=== PATIENT | female | born 1970 | race Caucasian/White ===

== ENCOUNTER 2016-12-02 11:25 | Inpatient (IN) | payer OTHER ==
--- NOTE | 2016-11-04 07:31 | History & Physical Bridge Note ---
H&P Re-Evaluation Bridge Note: I have examined the patient, reviewed the History & Physical and in the interval since the performance of the History & Physical I have noted the following changes of clinical significance: No changes noted
[2016-11-28 09:02] VITALS: BMI 24.0
--- NOTE | 2016-11-28 09:38 | PAT Medication Instructions ---
Service Date Nov 28, 2016. Current Home Medication List Acetaminophen (Tylenol), 1,500 MG PO UD PRN for Pain Amitriptyline HCl (Amitriptyline HCl), 10 MG PO HS Baclofen (Lioresal), 10 MG PO TID Buspirone Hcl (Buspar), 15 MG PO BID Citalopram (Citalopram Hydrobromide), 40 MG PO HS Clonazepam (Klonopin), 1 MG PO TID PRN for RN Dicyclomine Hcl (Dicyclomine Hcl), 10 MG PO TID PRN for ABDOMINAL CRAMPING Diphenhydramine Hcl (Benadryl), 50 MG PO Q8WK PRN for Prior to Remicade Gabapentin (Gabapentin), 300 MG PO TID Infliximab (Remicade), 1 DOSE IV Q8WK Mirtazapine Soltab (Remeron Soltab), 30 MG PO HS Multivit/Min/Iron/Fol Ac/Pren ( Vitamin), 1 TAB PO BID Naproxen (Naprosyn), 500 MG PO BID PRN for PRN Ondansetron Hcl (Zofran), 4 MG PO Q8 PRN for Nausea or Vomiting Pantoprazole (Pantoprazole Sodium), 40 MG PO BID Ranitidine Hcl (Zantac), 300 MG PO HS Tramadol (Ultram), 50-100 MG PO Q6H Trazodone Hcl (Trazodone), 100 MG PO HS Venlafaxine Hcl (Venlafaxine Extended Rel), 75 MG PO QAM [Voltareen 1%], 1 DOSE TOP QID 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 for 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 furnace Instructions For Your Scheduled Surgery Diphenhydramine Hcl (Benadryl), 50 MG PO Q8WK PRN for Prior to Remicade Infliximab (Remicade), 1 DOSE IV Q8WK (check with GI doctor if you can continue as scheduled) - Hold the following medications 24 hours prior to surgery: Voltaren 1% 1 DOSE TOP QID PRN for RN - Hold the following medications the morning of surgery: Multivit/Min/Iron/Fol Ac/Pren ( Vitamin), 1 TAB PO BID Naproxen (Naprosyn), 500 MG PO BID PRN for PRN (not told to stop by surgeon) Dicyclomine Hcl (Dicyclomine Hcl), 10 MG PO TID PRN for ABDOMINAL CRAMPING Baclofen (Lioresal), 10 MG PO TID - Take the following medications the morning of surgery with a sip of water: Venlafaxine Hcl (Venlafaxine Extended Rel), 75 MG PO QAM Tramadol (Ultram), 50-100 MG PO Q6H (can take up to four hours prior to surgery if needed) Pantoprazole (Pantoprazole Sodium), 40 MG PO BID Ondansetron Hcl (Zofran), 4 MG PO Q8 PRN for Nausea or Vomiting (only if needed) Gabapentin (Gabapentin), 300 MG PO TID (if needed) Clonazepam (Klonopin), 1 MG PO TID PRN for RN Buspirone Hcl (Buspar), 15 MG PO BID Acetaminophen (Tylenol), 1,500 MG PO UD PRN for Pain (if needed) - Take the following medications as scheduled the night before surgery: Trazodone Hcl (Trazodone), 100 MG PO HS Tramadol (Ultram), 50-100 MG PO Q6H Ranitidine Hcl (Zantac), 300 MG PO HS Pantoprazole (Pantoprazole Sodium), 40 MG PO BID Multivit/Min/Iron/Fol Ac/Pren ( Vitamin), 1 TAB PO BID Mirtazapine Soltab (Remeron Soltab), 30 MG PO HS Gabapentin (Gabapentin), 300 MG PO TID Dicyclomine Hcl (Dicyclomine Hcl), 10 MG PO TID PRN for ABDOMINAL CRAMPING Clonazepam (Klonopin), 1 MG PO TID PRN for RN Buspirone Hcl (Buspar), 15 MG PO BID Citalopram (Citalopram Hydrobromide), 40 MG PO HS Baclofen (Lioresal), 10 MG PO TID Acetaminophen (Tylenol), 1,500 MG PO UD PRN for Pain Amitriptyline HCl (Amitriptyline HCl), 10 MG PO HS If you have any questions please call us at [phone] or [phone] ( [place]) or [phone]
[2016-11-28 10:06] LABS: HEMATOCRIT 39.8 % (37-47); MEAN CELL VOLUME 88.4 fL (80-100); MEAN CORPUSCULAR HEMOGLOBIN 30.4 pg (25-34); MEAN CORPUSCULAR HGB CONC 34.4 g/dl (32-36); MEAN PLATELET VOLUME 10.3 fL (7.4-10.4); PLATELET COUNT 219 K/uL (130-400); WHITE BLOOD COUNT 5.93 K/uL (4.8-10.8)
[2016-11-28 10:32] LABS: BUN/CREATININE RATIO 14.1 (10-20); CALCIUM 9.3 mg/dl (8.5-10.1); CREATININE 0.75 mg/dl (0.60-1.20); POTASSIUM 3.7 mmol/L (3.5-5.1)
[2016-11-28 10:53] LABS: BASO % 0.3 %; BASO ABS # 0.02 K/uL (0-0.2); COMPLETE YES; EOS % 2.7 %; LYMPH % 50.6 %; MONO % 10.3 %; NEUT % 36.1 %
[~2016-12-02] VITALS: Ht 170.2 cm; Wt 69.6 kg
[2016-12-02] VITALS (7 sets, daily range): BP systolic 100–127; BP diastolic 57–79; PULSE 65–97; TEMP 36.4–37; O2SAT 96–100; Ht 170.2 cm; Wt 69.6 kg
--- NOTE | 2016-12-02 10:47 | HISTORY & PHYSICAL EXAMINATION ---
DATE OF ADMISSION: 12/02/2016 CHIEF COMPLAINT: Low back pain with left leg pain. HISTORY OF PRESENT ILLNESS: Ms. Hernandez is a pleasant individual who presents for surgical evaluation. 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 At this point, she is considering surgical intervention. She has pain that goes all the way down her right leg. PAST MEDICAL HISTORY: Significant for acid reflux, cholecystitis, hiatal hernia. She also suffers from migraine headaches. CURRENT MEDICATIONS: Include Tylenol, amitriptyline, baclofen, buspirone, citalopram, clonazepam, dicyclomine, Benadryl, Neurontin, Remicade, Remeron, Naprosyn, Zofran, pantoprazole, Zantac, Ultram, trazodone and venlafaxine. ALLERGIES: SHE HAS LATEX ALLERGY, but no other drug allergies. REVIEW OF SYSTEMS: Negative except for what is in the HPI. SOCIAL HISTORY: The patient denies any alcohol use, is a current everyday smoker. PHYSICAL EXAMINATION: GENERAL: She stands and moves easily about the exam room. MUSCULOSKELETAL: Lower extremity motor exam reveals no focal atrophy. She has positive straight leg raise on the right, negative on the left. Strength and sensation both intact. NEUROLOGIC: Visual brown are grossly intact. CARDIOVASCULAR EXAMINATION: Reveals no gross abnormalities. ABDOMEN: Soft, nontender. EXTREMITIES: Calves are soft and nontender. Babinski is negative. RADIOGRAPHIC IMAGES: Recent MRI of the lumbar spine is available for review. This reveals previous fusion at L5-S1. There are degenerative changes at L4-L5 with significant neural foraminal stenosis noted on the right at the L4-L5 segment. There also appears to be a facet joint cyst on the right as well. 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 PLAN: At this point, she has failed conservative measures. She had diagnostic therapeutic nerve block which affectively got rid of her leg pain for a short period of time. Our plan is to go ahead with surgery removing the old hardware that has been placed at the L5-S1 segment decompressing and fusing the L4-L5 segment. Discussed with patient, discussed risks and benefits. The patient has agreed to proceed with surgery.
[~2016-12-02 11:25] MED LIST: ACET-1256 PO; AMT10 PO; BACL10TA PO; BND25 PO; BUSP15TA70 PO; CITA40TA4 PO; CLON1TAB3 PO; DICY10CA12 PO; GABA1CAP4 PO; LACTATED RINGER'S 1000ML 1,000 ML IV SCH; MIRT30TA2 PO; NAPR-1169 PO; ONDA4TAB46 PO; PRENTAB26 PO; PRT/40 PO; RANI300T PO; RMCI IV; TRAM-10 PO; TRAZ50TA35 PO; VENL75CA73 PO; [UNRECOGNIZED DRUG - OTHER] TOP
[2016-12-02] MEDS ORDERED: MIDAZOLAM HCL 1 MG/ML 2ML VIAL ONE (11:38)
[2016-12-02] MEDS ORDERED: FENTANYL CITRATE INJ 50 MCG/1 ML 2 ML VIAL ONE (11:38)
[2016-12-02] MEDS ORDERED: NURSING VERBAL MED ORDER ONE ×3 (12:45→13:00)
[2016-12-02] MEDS ORDERED: CEFAZOLIN SOD 1000MG/55 ML D5W IV ONE (12:52)
[2016-12-02] MEDS ORDERED: HYDROmorphone INJ 2 MG/ML SYR/VIAL ONE (12:56)
[2016-12-02] MEDS ORDERED: ONDANSETRON INJ 2 MG/ML 2 ML VIAL IV PRN (13:30)
[2016-12-02] MEDS ORDERED: ATROPINE SULFATE 0.1 MG/ML 5ML SYR IV PRN (13:30)
[2016-12-02] MEDS ORDERED: LABETALOL HCL IV 5 MG/ML 20ML IV PRN (13:30)
[2016-12-02] MEDS ORDERED: DEXAMETHASONE SOD INJ 4 MG/ML VIAL ONE ×2 (13:43→13:44)
[2016-12-02] MEDS ORDERED: GLYCOPYRROLATE INJ 0.2 MG/ML VIAL ONE (13:43)
[2016-12-02] MEDS ORDERED: PROPOFOL IV EMULSION 10 MG/ML 20 ML VIAL IV ONE (13:43)
[2016-12-02] MEDS ORDERED: ROCURONIUM BROMIDE 10 MG/ML 5 ML VIAL ONE ×2 (13:43→13:55)
[2016-12-02] MEDS ORDERED: NEOSTIGMINE METHYLSULFATE 1 MG/ML 10ML VIAL ONE (13:43)
[2016-12-02] MEDS ORDERED: LIDOCAINE HCL 2% 2 ML VIAL (20MG/ML) ONE (13:43)
[2016-12-02] MEDS ORDERED: ONDANSETRON INJ 2 MG/ML 2 ML VIAL ONE (13:43)
[2016-12-02] MEDS ORDERED: BUPIVACAINE/EPINEPHRINE 0.5% MPF 1:200,000 30 ML VIAL INJ ONE (13:50)
[2016-12-02] MEDS ORDERED: FLOSEAL HEMOSTATIC MATRIX 10ML TOP ONE (14:39)
[2016-12-02] MEDS ORDERED: BACITRACIN 50000 UNIT VIAL IR ONE (14:39)
[2016-12-02] MEDS ORDERED: SODIUM CHLORIDE 0.9% 1000ML 1,000 ML IV SCH (14:41)
--- NOTE | 2016-12-02 14:41 | [facility] Post Operative Brief Note ---
Immediate Operative Summary Operative Date Dec 02, 2016. Pre-Operative Diagnosis Adjacent level disease with breakdown at L4-5 Post-Operative Diagnosis Same as preop diagnosis Procedure(s) Performed L4-L5 Lumbar Decompression, Posterior Instrumented Fusion, Application of interbody cage, use of Fibrinet Vertical Spine; L5-S1 Hardware Removal Surgeon Dr. Jose Luis Castro Hr Leader Surgeon(s) TANNER Ruelas Estimated Blood Loss 80 ml Findings facet cyst Specimens A: Explanted Hardware
[2016-12-02] MEDS ORDERED: SOD PHOSPHATE/SOD BIPHOSPHATE ENEMA 132 ML BTL PR PRN (14:45)
[2016-12-02] MEDS ORDERED: NALOXONE HCL 0.4 MG/1 ML VIAL/CARP IV PRN ×2 (14:45)
[2016-12-02] MEDS ORDERED: hydrOXYzine HCL 25 MG TAB PO PRN (14:45)
[2016-12-02] MEDS ORDERED: PROMETHAZINE HCL INJ 12.5 MG in SODIUM CHLORIDE 0.9% 50ML 50 ML IV PRN (14:45)
[2016-12-02] MEDS ORDERED: DO NOT ADMINISTER PNEUMOCOCCAL VACCINE PRN ×2 (14:45)
[2016-12-02] MEDS ORDERED: LORAZEPAM INJ 0.5 MG in SYRINGE 0.75 ML IV PRN (14:45)
[2016-12-02] MEDS ORDERED: MAGNESIUM HYDROXIDE SUSP 30 ML UDC PO PRN (14:45)
[2016-12-02] MEDS ORDERED: ACETAMINOPHEN IV 100 ML IV PRN (14:45)
[2016-12-02] MEDS ORDERED: ALUMINUM/MAGNESIUM SUSP 30 ML UDC PO PRN (14:45)
[2016-12-02] MEDS ORDERED: DO NOT ADMINISTER FLU VACCINE PRN ×3 (14:45)
[2016-12-02] MEDS ORDERED: FAMOTIDINE 20 MG TAB PO PRN (14:45)
[2016-12-02] MEDS ORDERED: ACETAMINOPHEN 500 MG TAB PO PRN (14:45)
[2016-12-02] MEDS ORDERED: BISACODYL 10 MG SUPP PR PRN (14:45)
[2016-12-02] MEDS ORDERED: METOCLOPRAMIDE HCL INJ 5 MG/ML 2 ML VIAL IV PRN (14:45)
[2016-12-02] MEDS: HYDROmorphone HCL 0.5MG/ML 50 ML CASSETTE IV PRN ×2 (15:10→22:48)
--- NOTE | 2016-12-02 15:10 | OPERATIVE REPORT ---
DATE OF OPERATION: 12/02/2016 PREOPERATIVE DIAGNOSIS: Spinal stenosis L4-L5. POSTOPERATIVE DIAGNOSIS: Same with evidence of massive facet cyst on the right. PROCEDURE PERFORMED: 1. Removal of posterior instrumentation L5-S1. 2. Exploration of fusion L5-S1. 3. Lumbar decompression, medial facetectomy, and foraminotomy L3-L4, L4-L5. 4. Posterior spinal fusion L4-L5. 5. Placement posterior instrumentation using Orthros rods and screws L4-L5. 6. Interbody fusion L4-L5. 7. Placement of PEEK cage 12 x 22 mm at L4-L5. 8. Placement of locally harvested morselized autograft posterior gutters. 9. Placement of FiberNet and OsteoStrux in the interbody space and posterior gutters. SURGEON: Dr. Jose Luis Castro. MAINTENANCE FITTER: Jett Frances PA-C. Due to the complex nature of the procedure, the entire surgery was performed with the assistant golf coach of RACHAEL Jenkins. The assistant housekeeping manager, under direct supervision, was involved in the actual performance of all aspects of the surgical procedure including hemostasis, tissue retraction and incision, instrument management, patient positioning, and wound closure. ANESTHESIA: General. DISPOSITION: The patient awakened and taken to PACU in stable condition. HISTORY OF PATIENT'S PROBLEMS: This is a 46-year-old female that presents with above-mentioned diagnosis. After failing an extensive course of nonoperative care, she elected to undergo the above-mentioned procedure. Risks, benefits, pros, cons, and alternatives were outlined in detail preoperatively. OPERATION AND FINDINGS: PROCEDURE: The patient was met preoperatively and the case discussed and all questions were addressed. At that point the patient was taken back to operative suite and after undergoing successful general intubation by the department of anesthesia was placed in prone position on Scott table atop Antwan frame. All bony prominences were well padded and the eyes were inspected to ensure there was no external pressure placed upon them. At this point, lumbar spine was prepped and draped in normal sterile fashion. Sharp dissection with the assistance of Bovie cautery performed down to and exposing the lamina and transverse processes of 4 and instrumentation at 5-1 level bilaterally. I then proceeded to remove the hardware bilaterally at L5-S1 exploring the fusion mass that was noted to be intact. I then performed a complete laminectomy of L4, partial laminectomy of L3 addressing severe right-sided stenosis, evidence of massive facet cyst occupying the lateral recess and foramina L4-L5. After this was decompressed and removed, pedicle screws were then placed in L4-L5 bilaterally with the assistance of fluoroscopy and through a transforaminal approach on the right, a complete discectomy was performed, endplates curetted to subcortical bleeding bone. A 12 x 22 mm PEEK cage filled with Leelee bone graft filled with FiberNet OsteoStrux tapped into position. The rods were then compressed, locked into final position bilaterally and transverse processes of L4-L5 burred to subcortical bone. The remaining FiberNet, OsteoStrux and locally harvested morselized autograft was placed in the posterior gutters. A 7 flat ZAK drain inserted. Incision was closed with 1-0 Vicryl in the fascia, 2-0 Vicryl subcutaneously, 4-0 Monocryl for final skin closure. Steri-Strips and sterile dressing placed. The patient was awakened and taken to PACU in stable condition. I attest to the content of the Intraoperative Record and any orders documented therein. Any exceptio ns are noted below.
[2016-12-02] MEDS: HYDROmorphone INJ 2 MG/ML SYR/VIAL IV PRN ×4 (15:11→15:26)
--- NOTE | 2016-12-02 15:23 | DIAGNOSTIC IMAGING REPORT ---
INTRAOPERATIVE RADIOGRAPHS CLINICAL HISTORY: L5-S1 hardware removal. L4-L5 spinal fusion. Fluoroscopy time: 6 seconds. FINDINGS: 2 spot fluoroscopic images of the lower lumbar spine are presented. There is evidence of discectomy at L4-L5 and L5-S1. There has been laminectomy and posterior fusion at L4-L5 with interpedicular screws at both levels. The orthopedic hardware appears intact. IMPRESSION: Intraoperative images from L4 to L5 spinal fusion as above. Electronically signed by: Alexys Banks M.D. 12/02/2016 3:22 PM Dictated Date/Time: 12/02/2016 3:21 PM
--- NOTE | 2016-12-02 15:43 | Anesthesiology Progress Note ---
Anesthesia Post Op Note Date & Time Dec 02, 2016 at 15:42 Vital Signs Pain Intensity: 3 Vital Signs Past 12 Hours Date Time Temp Pulse Resp B/P Pulse Ox O2 Delivery O2 Flow Rate FiO2 12/02/16 15:34 36.8 12/02/16 15:30 77 16 100 12/02/16 15:30 77 12/02/16 15:28 114/84 12/02/16 15:25 85 12 12/02/16 15:25 83 12 100 12/02/16 15:23 124/75 12/02/16 15:20 87 13 12/02/16 15:20 Nasal Cannula 4 12/02/16 15:20 89 13 100 12/02/16 15:18 126/76 12/02/16 15:15 81 12 100 12/02/16 15:15 80 12 12/02/16 15:13 123/74 12/02/16 15:10 92 17 12/02/16 15:10 91 17 100 12/02/16 15:09 128/86 12/02/16 15:08 128/86 12/02/16 15:05 84 12 12/02/16 15:05 83 12 100 12/02/16 15:02 124/77 12/02/16 15:00 36.0 97 16 124/77 100 Mask 10 12/02/16 12:00 37 94 18 122/78 98 Room Air Notes Mental Status: alert / awake / arousable, participated in evaluation Pt Amnestic to Procedure: Yes Nausea / Vomiting: adequately controlled Pain: adequately controlled Airway Patency, RR, SpO2: stable & adequate BP & HR: stable & adequate Hydration State: stable & adequate Anesthetic Complications: no major complications apparent
[2016-12-02] MEDS: LACTATED RINGER'S 1000ML 1,000 ML IV SCH (16:00)
[2016-12-02] MEDS: TRAZODONE HCL 50 MG TAB PO SCH (21:27)
[2016-12-02] MEDS: GABAPENTIN 300 MG CAP PO SCH (21:28)
[2016-12-02] MEDS: AMITRIPTYLINE HCL 10 MG TAB PO SCH (21:28)
[2016-12-02] MEDS: BACLOFEN 10 MG TAB PO SCH (21:28)
[2016-12-02] MEDS: DOCUSATE SODIUM/SENNA 50/8.6MG TAB PO SCH (21:28)
[2016-12-02] MEDS: CITALOPRAM 40 MG TAB PO SCH (21:28)
[2016-12-02] MEDS: PANTOprazole SOD 40 MG TAB PO SCH (21:29)
[2016-12-02] MEDS: BusPIRone 15 MG TAB PO SCH (21:29)
[2016-12-02] MEDS: RANITIDINE HCL 150 MG TAB PO SCH (21:29)
[2016-12-02] MEDS: DEXAMETHASONE INJ 6 MG in SYRINGE 0 ML IV SCH (21:30)
[2016-12-02] MEDS: CEFAZOLIN IV 1,000 MG in DEXTROSE 5% 50ML 50 ML IV SCH (21:35)
[2016-12-02] MEDS: DICYCLOMINE HCL 10 MG CAP PO PRN (21:37)
[2016-12-03] MEDS: LACTATED RINGER'S 1000ML 1,000 ML IV SCH (02:38)
[2016-12-03 03:32] VITALS: BP 99/49; PULSE 84; TEMP 36.8; O2SAT 96
[2016-12-03 04:11] VITALS: BP 122/80; PULSE 71
[2016-12-03] MEDS ORDERED: HYDROmorphone INJ 0.5 MG/0.5 ML SYR IV PRN (06:00)
[2016-12-03] MEDS ORDERED: DC PCA SCH (06:00)
[2016-12-03 06:13] LABS: BASO % 0.1 %; BASO ABS # 0.01 K/uL (0-0.2); COMPLETE YES; HEMATOCRIT 34.7 % (37-47); IG% 0.2 %; LYMPH % 16.4 %; LYMPH ABS # 1.65 K/uL (1.2-3.4); MEAN CELL VOLUME 87.6 fL (80-100); MEAN CORPUSCULAR HGB CONC 33.1 g/dl (32-36); MEAN PLATELET VOLUME 10.4 fL (7.4-10.4); MONO % 6.1 %; NEUT % 77.2 %; PLATELET COUNT 213 K/uL (130-400); RED BLOOD COUNT 3.96 M/uL (4.2-5.4); WHITE BLOOD COUNT 10.09 K/uL (4.8-10.8)
[2016-12-03] MEDS: DEXAMETHASONE INJ 6 MG in SYRINGE 0 ML IV SCH ×2 (06:30→13:40)
[2016-12-03] MEDS: CEFAZOLIN IV 1,000 MG in DEXTROSE 5% 50ML 50 ML IV SCH (06:30)
[2016-12-03 06:37] LABS: BUN/CREATININE RATIO 11.1 (10-20); CALCIUM 8.6 mg/dl (8.5-10.1); CREATININE 0.64 mg/dl (0.60-1.20); POTASSIUM 3.9 mmol/L (3.5-5.1)
[2016-12-03 07:17] VITALS: BP 124/74; PULSE 81; TEMP 36.7; O2SAT 97
[2016-12-03] MEDS ORDERED: NURSING VERBAL MED ORDER ONE ×2 (07:45→13:45)
[2016-12-03] MEDS: NICOTINE 21 MG/24 HR TDSY EXT SCH (07:59)
[2016-12-03] MEDS: OXYCODONE HCL IR 5 MG TAB (IMMEDIATE RELEASE) PO PRN ×3 (07:59→19:36)
[2016-12-03] MEDS: VENLAFAXINE HCL XR 75 MG CAPXR PO SCH (08:01)
[2016-12-03] MEDS: BusPIRone 15 MG TAB PO SCH ×2 (08:01→21:02)
[2016-12-03] MEDS: BACLOFEN 10 MG TAB PO SCH ×3 (08:01→21:03)
[2016-12-03] MEDS: PANTOprazole SOD 40 MG TAB PO SCH ×2 (08:02→21:03)
[2016-12-03] MEDS: GABAPENTIN 300 MG CAP PO SCH ×3 (08:02→21:02)
[2016-12-03] MEDS: DICYCLOMINE HCL 10 MG CAP PO PRN (08:02)
[2016-12-03] MEDS ORDERED: HYDROmorphone INJ 1 MG/ML SYR IV PRN (09:15)
[2016-12-03] MEDS: HYDROmorphone INJ 1 MG/ML SYR IV PRN ×3 (09:15→21:05)
[2016-12-03] MEDS ORDERED: RXC5 PO (09:57)
[2016-12-03] MEDS ORDERED: TRAM-10 PO (09:57)
--- NOTE | 2016-12-03 09:58 | Discharge Instructions ---
Discharge Instructions Admission Reason for Admission: Lumbar Spinal Stenosis Discharge Discharge Diagnosis / Problem: stenosis Discharge Goals Goal(s): Improve function Activity Recommendations Activity Limitations: per Instructions/Follow-up section . Instructions / Follow-Up Instructions / Follow-Up ACTIVITY RECOMMENDATIONS: SELF CARE INSTRUCTIONS AFTER THORACIC/LUMBAR FUSIONS 1. You may walk to your tolerance. It is good exercise for your legs and back. Expect some back and intermittent leg aches and pains. 2. You may perform "counter-top" level activities (make a sandwich, brad with a project, etc.). 3. No bending or lifting of more than 10 pounds or back twisting of any nature (roll like a log when turning in bed). 4. You may ride in a car for 20-30 minutes at a time. No driving until after your first visit with your doctor. 5. Frequent changes of position and restricting sitting to 30 minutes at a time will help limit the amount of back spasms and stiffness you may experience. 6. You may discontinue the use of ambulatory aids (cane, crutches, etc.) once your strength and confidence allow. 7. You may die maintenance technician the shower and let water strike your incision when you arrive home at least once daily. Do not take a tub bath, sit in a hot tub or go into a swimming pool until after your first recheck in the office. SPECIAL CARE INSTRUCTIONS: VERY IMPORTANT TO READ AND REVIEW A. Your surgical incision has been closed with a cosmetic suture under the skin that will dissolve in about 6 weeks. In 14 days, you can use a pair of clean scissors and cut the suture that is left outside of the skin at the ends of your incision. 1. The small skin tapes can be removed 7 days after surgery if they have not fallen off by that point. 2. You may keep the wound open to air as much as possible to promote healing after post-op day number 5 unless told otherwise by your doctor. 3. If you think the wound looks like it is becoming infected (redness or worsening drainage) and/or you are experiencing fever, chill or worsening back pain and muscle spasms, contact the office so that we may evaluate you as soon as possible. B. Complications are uncommon, but please contact us if you have any signs or symptoms of: 1. wound infection (fever higher than 102.5 degrees F, redness, separation of wound, drainage, or increasing pain from the incision) 2. blood clots in legs (pain, swelling, redness and warmth in legs) 3. urinary tract infection (fever higher than 102.5 degrees F, burning upon urination or increased frequency of urination) 4. nerve problems (inability to walk on your toes or heels, numbness, loss of bowel or bladder control) 5. any other symptoms that concern you C. Please call the office at if you have any concerns or questions about your operation or recovery. D. No smoking! Smoking drastically decreases the chance of a solid fusion. E. Do not take any anti-inflammatory medications (Indocin, Advil, Motrin, Aspirin, Naprosyn, etc.) as these may inhibit the chance of a solid fusion. Tylenol is okay to take for pain. MANAGING PAIN AFTER SPINAL SURGERY 1. Narcotic medication is intended for short-term use and will be provided for surgical pain. Surgical pain usually lasts for a period of 4-6 weeks. Narcotic medication includes Percocet, Vicodin, Darvocet, Tylenol #3 or Lortab. 2. Longer-term pain is more appropriately treated with non-narcotic medication such as Tylenol ES. 3. Muscle spasm is not appropriately treated with narcotics. Muscle relaxers such as Soma, Flexeril or Skelaxin can be used along with Tylenol ES. 4. Remember that we all live with some "aches and pains". This is not unusual or uncommon after an injury or as we get older. a. Back pain is expected and may include muscle spasms for 4 to 6 weeks after surgery. The pain should gradually improve. If the pain worsens for no apparent reason, please contact the office. b. Intermittent leg pain may also be experienced and should not be concerned about unless it worsens for no apparent reason. If so, please contact the office. 5. We will provide appropriate medication within the normal guidelines of their prescribed use. We will also be very cautious and aware of potential abuse and extended duration of patients' medication needs. a. Pain medications are for your comfort and to assist with sleep and rest so that the tissue can heal. They are not provided in order to return to normal activity and should not be used through the day. To do so or worsening pain at night can result from ongoing tissue damage and development of tolerance to the prescribed medicine. 6. Please allow 2-3 days to process refills. Prescriptions will not be mailed but must be picked up at the office. FOLLOW UP VISIT: Keep your scheduled follow-up appointment. Any questions, please call the office at . Current Hospital Diet Patient's current hospital diet: Regular Diet Discharge Diet Recommended Diet: Regular Diet Procedures Procedures Performed: L4-L5 Lumbar Decompression, Posterior Instrumented Fusion, Application of interbody cage, use of Fibrinet Vertical Spine; L5-S1 Hardware Removal Pending Studies Studies pending at discharge: no Medical Emergencies . Who to Call and When: Medical Emergencies: If at any time you feel your situation is an emergency, please call 911 immediately. . Non-Emergent Contact Non-Emergency issues call your: Primary Care Provider . "Provider Documentation" section prepared by Jose Luis Castro. VTE Core Measure Inpt VTE Proph given/why not?: Sydnie Spivey, SCD's
--- NOTE | 2016-12-03 10:14 | PROGRESS NOTE ---
DATE: 12/03/2016 SUBJECTIVE: Postop day #1. Back pain controlled. Leg pain improved. Vital signs stable. T-max 36.8. ZAK drained 50 mL. Hematocrit this a.m. is 34.7. OBJECTIVE: On exam, she has good strength to testing. Appears comfortable. ASSESSMENT: Status post lumbar decompression and fusion. PLAN: At this time, will continue physical therapy, advance her bowel regimen and anticipate home tomorrow or Monday.
[2016-12-03] MEDS: KETOROLAC TROMETHAMINE 30 MG/ML VIAL IV PRN ×2 (11:23→18:16)
[2016-12-03] MEDS: LORAZEPAM 0.5 MG TAB PO PRN (11:23)
[2016-12-03 15:25] VITALS: BP 101/53; PULSE 101; TEMP 36.7; O2SAT 96
[2016-12-03] MEDS: POLYETHYLENE (MIRALAX) 17 GM PACK PO SCH (19:29)
[2016-12-03] MEDS: CLONAZEPAM 1 MG TAB PO PRN (19:36)
[2016-12-03] MEDS: TRAZODONE HCL 50 MG TAB PO SCH (19:37)
[2016-12-03] MEDS: AMITRIPTYLINE HCL 10 MG TAB PO SCH (21:02)
[2016-12-03] MEDS: CITALOPRAM 40 MG TAB PO SCH (21:02)
[2016-12-03] MEDS: DOCUSATE SODIUM/SENNA 50/8.6MG TAB PO SCH (21:03)
[2016-12-03] MEDS: RANITIDINE HCL 150 MG TAB PO SCH (21:03)
[2016-12-03 23:35] VITALS: BP 98/61; PULSE 79; TEMP 36.5; O2SAT 97
[2016-12-04 06:18] VITALS: BP 103/69; PULSE 84; TEMP 36.6; O2SAT 85; O2SAT 95
[2016-12-04] MEDS: BACLOFEN 10 MG TAB PO SCH ×3 (07:05→20:05)
[2016-12-04] MEDS: BusPIRone 15 MG TAB PO SCH ×2 (07:05→20:05)
[2016-12-04] MEDS: NICOTINE 21 MG/24 HR TDSY EXT SCH (07:05)
[2016-12-04] MEDS: PANTOprazole SOD 40 MG TAB PO SCH ×2 (07:05→20:06)
[2016-12-04] MEDS: VENLAFAXINE HCL XR 75 MG CAPXR PO SCH (07:05)
[2016-12-04] MEDS: GABAPENTIN 300 MG CAP PO SCH ×3 (07:05→20:04)
[2016-12-04] MEDS: OXYCODONE HCL IR 5 MG TAB (IMMEDIATE RELEASE) PO PRN ×3 (07:06→16:49)
--- NOTE | 2016-12-04 08:02 | Orthopedic Progress Note ---
Orthopedic Progress Note Date of Service Dec 04, 2016. Subjective Additional Notes: Doing ok w/ rehab, still has moderate pain. Otherwise medically stable. Objective calves soft nontender, N/V intact, capillary refill less than 2 sec., dressing C /D/I, A&O x3, toes mobile, hemovac drainage Date Time Temp Pulse Resp B/P Pulse Ox O2 Delivery O2 Flow Rate FiO2 12/04/16 07:16 Room Air 12/04/16 06:18 36.6 84 18 103/69 95 Room Air 12/03/16 23:35 36.5 79 18 98/61 97 Room Air 12/03/16 19:44 Room Air 12/03/16 15:31 Room Air 12/03/16 15:25 36.7 101 18 101/53 96 Room Air Assessment & Plan Assessment: s/p lumbar fusion Plan: Continue pain control, activity as tolerated, expect discharge tomorrow.
[2016-12-04] MEDS: KETOROLAC TROMETHAMINE 30 MG/ML VIAL IV PRN ×2 (08:43→18:51)
[2016-12-04] MEDS: ONDANSETRON INJ 2 MG/ML 2 ML VIAL IV PRN (08:43)
[2016-12-04] MEDS: POLYETHYLENE (MIRALAX) 17 GM PACK PO SCH ×3 (12:00→22:59)
[2016-12-04] MEDS: LORAZEPAM 0.5 MG TAB PO PRN (12:16)
[2016-12-04] MEDS: HYDROmorphone INJ 1 MG/ML SYR IV PRN ×2 (13:17→20:08)
[2016-12-04 15:17] VITALS: BP 131/82; PULSE 90; TEMP 36.6; O2SAT 92
[2016-12-04] MEDS: CLONAZEPAM 1 MG TAB PO PRN (20:00)
[2016-12-04] MEDS: TRAZODONE HCL 50 MG TAB PO SCH (20:03)
[2016-12-04] MEDS: CITALOPRAM 40 MG TAB PO SCH (20:04)
[2016-12-04] MEDS: DOCUSATE SODIUM/SENNA 50/8.6MG TAB PO SCH (20:05)
[2016-12-04] MEDS: AMITRIPTYLINE HCL 10 MG TAB PO SCH (20:05)
[2016-12-04] MEDS: RANITIDINE HCL 150 MG TAB PO SCH (20:05)
[2016-12-04 22:56] VITALS: BP 99/59; PULSE 73; TEMP 36.4; O2SAT 95
[2016-12-05] MEDS: OXYCODONE HCL IR 5 MG TAB (IMMEDIATE RELEASE) PO PRN ×3 (01:21→10:30)
[2016-12-05] MEDS: KETOROLAC TROMETHAMINE 30 MG/ML VIAL IV PRN (07:23)
[2016-12-05] MEDS: ONDANSETRON INJ 2 MG/ML 2 ML VIAL IV PRN (07:23)
--- NOTE | 2016-12-05 07:40 | Anesthesiology Progress Note ---
Anesthesia Post Op Note Date & Time Dec 05, 2016 at 07:40 Vital Signs Pain Intensity: 8.0 Vital Signs Past 12 Hours Date Time Temp Pulse Resp B/P Pulse Ox O2 Delivery O2 Flow Rate FiO2 12/04/16 22:56 36.4 73 20 99/59 95 Room Air 12/04/16 20:08 Room Air Notes Mental Status: alert / awake / arousable, participated in evaluation Pt Amnestic to Procedure: Yes Nausea / Vomiting: adequately controlled Pain: adequately controlled Airway Patency, RR, SpO2: stable & adequate BP & HR: stable & adequate Hydration State: stable & adequate Anesthetic Complications: no major complications apparent
[2016-12-05 07:42] VITALS: BP 102/70; PULSE 76; TEMP 36.6; O2SAT 97
[2016-12-05 07:49] VITALS: O2SAT 97
[2016-12-05 07:59] VITALS: BP 102/70; PULSE 76; TEMP 36.6; O2SAT 97
[2016-12-05] MEDS: NICOTINE 21 MG/24 HR TDSY EXT SCH (08:42)
[2016-12-05] MEDS: BusPIRone 15 MG TAB PO SCH (08:46)
[2016-12-05] MEDS: BACLOFEN 10 MG TAB PO SCH (08:47)
[2016-12-05] MEDS: VENLAFAXINE HCL XR 75 MG CAPXR PO SCH (08:47)
[2016-12-05] MEDS: GABAPENTIN 300 MG CAP PO SCH (08:48)
[2016-12-05] MEDS: PANTOprazole SOD 40 MG TAB PO SCH (08:48)
[2016-12-05] MEDS: POLYETHYLENE (MIRALAX) 17 GM PACK PO SCH (09:34)
[2016-12-05] MEDS: DICYCLOMINE HCL 10 MG CAP PO PRN (09:43)
[2016-12-05] MEDS: CLONAZEPAM 1 MG TAB PO PRN (09:44)
--- NOTE | 2016-12-05 13:41 | DISCHARGE SUMMARY ---
PRINCIPAL DIAGNOSIS: Spinal stenosis. HOSPITAL COURSE FOLLOWS: On December 02 the patient underwent lumbar decompression and fusion, tolerated this well and taken to the orthopedic floor postoperatively. Postop day #1, she was up and ambulatory, progressed through postop day #2. Postop day #3, ZAK drain decreased appropriately, pain well controlled. Subsequently discharged home. Discharge orders and instructions found on the chart for further review.
[2017-06-19] MEDS ORDERED: DICL1GEL12 EX (14:51)
[2017-06-19] MEDS ORDERED: DEXL30CA5 PO (15:14)
== END 2016-12-05 10:46 | disposition home or self-care (01) | DRG 460 ==
LOC: ENRESERVTM → ENRESERVDT → C.ACU 11:25 → C.3E 12:30
PROVIDERS: ADMIT Orthopaedic Surgery Orthopaedic Surgery of the Spine; ATTEND Orthopaedic Surgery Orthopaedic Surgery of the Spine
PROC: 0M9 Bursae and Ligaments, Drainage (ICD-10-PCS; principal; 2016-12-02 13:00)
PROC: 0SG0071 Fusion of Lumbar Vertebral Joint with Autologous Tissue Substitute, Posterior Approach, Posterior Column, Open Approach (ICD-10-PCS; principal; 2016-12-02 13:00)
PROC: 01NB0ZZ Release Lumbar Nerve, Open Approach (ICD-10-PCS; principal; 2016-12-02 13:00)
PROC: 0SG00AJ Fusion of Lumbar Vertebral Joint with Interbody Fusion Device, Posterior Approach, Anterior Column, Open Approach (ICD-10-PCS; principal; 2016-12-02 13:00)
PROC: 0SP304Z Removal of Internal Fixation Device from Lumbosacral Joint, Open Approach (ICD-10-PCS; principal; 2016-12-02 13:00)
PROC: 0ST20ZZ Resection of Lumbar Vertebral Disc, Open Approach (ICD-10-PCS; principal; 2016-12-02 13:00)
DX: M48.06 Spinal stenosis, lumbar region (principal); M71.38 Other bursal cyst, other site; E78.5 Hyperlipidemia, unspecified; K21.9 Gastro-esophageal reflux disease without esophagitis; K58.9 Irritable bowel syndrome, unspecified; M19.90 Unspecified osteoarthritis, unspecified site; G62.9 Polyneuropathy, unspecified; G43.909 Migraine, unspecified, not intractable, without status migrainosus; F41.9 Anxiety disorder, unspecified; F32.9 Major depressive disorder, single episode, unspecified; F17.210 Nicotine dependence, cigarettes, uncomplicated; Z98.1 Arthrodesis status; Z79.1 Long term (current) use of non-steroidal anti-inflammatories (NSAID); Z79.891 Long term (current) use of opiate analgesic; Z79.899 Other long term (current) drug therapy

== ENCOUNTER 2017-07-05 10:24 | Day surgery (SDC) | payer OTHER ==
[2017-06-19 14:26] VITALS: BMI 25.0
--- NOTE | 2017-06-19 15:12 | PAT Medication Instructions ---
Service Date Jun 19, 2017. Current Home Medication List Acetaminophen (Tylenol), 1,500 MG PO UD PRN for Pain Amitriptyline HCl (Amitriptyline HCl), 10 MG PO HS Baclofen (Lioresal), 10 MG PO TID Buspirone Hcl (Buspar), 15 MG PO BID Citalopram (Citalopram Hydrobromide), 40 MG PO HS Clonazepam (Klonopin), 1 MG PO TID PRN for RN Diclofenac Sodium (Topical) (Voltaren 1% Top Gel), 1 APPLN EX DAILY PRN for Pain Dicyclomine Hcl (Dicyclomine Hcl), 10 MG PO TID PRN for ABDOMINAL CRAMPING Diphenhydramine Hcl (Benadryl), 50 MG PO Q8WK PRN for Prior to Remicade Gabapentin (Gabapentin), 300 MG PO TID Infliximab (Remicade), 1 DOSE IV Q8WK Multivit/Min/Iron/Fol Ac/Pren ( Vitamin), 1 TAB PO QAM Ondansetron Hcl (Zofran), 4 MG PO Q8 PRN for Nausea or Vomiting Oxycodone HCl (Oxycodone HCl), 5-10 MG PO Q4H PRN for Moderate - severe pain Ranitidine Hcl (Zantac), 300 MG PO HS Trazodone Hcl (Trazodone), 100 MG PO HS Venlafaxine Hcl (Venlafaxine Extended Rel), 75 MG PO QAM Medication Instructions For Your Scheduled Surgery - Continue as directed: Infliximab (Remicade), 1 DOSE IV Q8WK Diphenhydramine Hcl (Benadryl), 50 MG PO Q8WK PRN for Prior to Remicade - Hold the following medications 24 hours prior to surgery: Diclofenac Sodium (Topical) (Voltaren 1% Top Gel), 1 APPLN EX DAILY PRN for Pain - Hold the following medications the morning of surgery: Baclofen (Lioresal), 10 MG PO TID Dicyclomine Hcl (Dicyclomine Hcl), 10 MG PO TID PRN for ABDOMINAL CRAMPING Multivit/Min/Iron/Fol Ac/Pren ( Vitamin), 1 TAB PO QAM - Take the following medications the morning of surgery with a sip of water OTHERWISE NOTHING TO EAT OR DRINK AFTER MIDNIGHT: Acetaminophen (Tylenol), 1,500 MG PO UD PRN for Pain (may take up to 4 hours prior to surgery if needed) Oxycodone HCl (Oxycodone HCl), 5-10 MG PO Q4H PRN for Moderate - severe pain ( may take up to 4 hours prior to surgery if needed) Buspirone Hcl (Buspar), 15 MG PO BID Dexilant Clonazepam (Klonopin), 1 MG PO TID PRN Venlafaxine Hcl (Venlafaxine Extended Rel), 75 MG PO QAM Gabapentin (Gabapentin), 300 MG PO TID Ondansetron Hcl (Zofran), 4 MG PO Q8 PRN for Nausea or Vomiting - Take the following medications as scheduled the night before surgery: Baclofen (Lioresal), 10 MG PO TID Acetaminophen (Tylenol), 1,500 MG PO UD PRN for Pain Buspirone Hcl (Buspar), 15 MG PO BID Citalopram (Citalopram Hydrobromide), 40 MG PO HS Dexilant Ranitidine Hcl (Zantac), 300 MG PO HS Trazodone Hcl (Trazodone), 100 MG PO HS Amitriptyline HCl (Amitriptyline HCl), 10 MG PO HS Clonazepam (Klonopin), 1 MG PO TID PRN Oxycodone HCl (Oxycodone HCl), 5-10 MG PO Q4H PRN for Moderate - severe pain Dicyclomine Hcl (Dicyclomine Hcl), 10 MG PO TID PRN for ABDOMINAL CRAMPING Gabapentin (Gabapentin), 300 MG PO TID Ondansetron Hcl (Zofran), 4 MG PO Q8 PRN for Nausea or Vomiting If you have any questions please call us at [phone] or [phone] or [phone]
[2017-06-19 16:10] LABS: HEMATOCRIT 39.6 % (37-47); MEAN CELL VOLUME 89.4 fL (80-100); MEAN CORPUSCULAR HGB CONC 33.6 g/dl (32-36); MEAN PLATELET VOLUME 10.2 fL (7.4-10.4); PLATELET COUNT 223 K/uL (130-400); RED BLOOD COUNT 4.43 M/uL (4.2-5.4); WHITE BLOOD COUNT 7.85 K/uL (4.8-10.8)
[2017-06-19 16:14] LABS: URINE APPEARANCE CLEAR (CLEAR); URINE BILIRUBIN NEG (NEG); URINE COLOR YELLOW; URINE NITRITE NEG (NEG); URINE SPECIFIC GRAVITY 1.015 (1.000-1.030); UROBILINOGEN NEG (NEG); ZZUR CULT IF INDIC CLEAN CATCH NO
[2017-06-19 16:18] LABS: MANUAL MICROSCOPIC REQUIRED? NO; REVIEW REQ? NO
[2017-06-19 16:20] LABS: BUN/CREATININE RATIO 16.4 (10-20); CALCIUM 9.4 mg/dl (8.5-10.1); CREATININE 0.78 mg/dl (0.60-1.20); POTASSIUM 4.1 mmol/L (3.5-5.1)
[2017-06-19 17:47] LABS: BASO ABS # 0.07 K/uL (0-0.2); BASOPHIL % 0.9 %; COMPLETE YES; EOSINOPHIL % 1.8 %; LYMPH ABS # 2.85 K/uL (1.2-3.4); LYMPHOCYTE % 36.3 %; NEUTROPHILS % 43.3 %; VARIANT LYM ABS # 1.04 K/uL; VARIANT LYMPHOCYTE % 13.3 %
[~2017-07-05] VITALS: Ht 170.2 cm; Wt 74.6 kg
[~2017-07-05 10:24] MED LIST changes: +CEFAZOLIN 1000MG/55 ML D5W IV SCH; +DEXL30CA5 PO; +DICL1GEL12 EX; -MIRT30TA2 PO; -NAPR-1169 PO; -PRT/40 PO; +RXC5 PO; -TRAM-10 PO; -[UNRECOGNIZED DRUG - OTHER] TOP
[2017-07-05 11:01] VITALS: BP 137/80; PULSE 82; TEMP 36.8; O2SAT 99; Ht 170.2 cm; Wt 74.6 kg
[2017-07-05] MEDS ORDERED: MIDAZOLAM HCL 1 MG/ML 2ML VIAL ONE (11:37)
[2017-07-05] MEDS ORDERED: FENTANYL CITRATE INJ 50 MCG/1 ML 2 ML VIAL ONE ×2 (11:37→13:11)
--- NOTE | 2017-07-05 11:44 | History and Physical ---
History & Physical Date Jul 05, 2017. Chief Complaint SI joint pain History of Present Illness The patient is a 46 year old female with complaints of chronic persistent right SI joint pain Past Medical/Surgical History Medical Problems: (1) AC PYELONEPHRITIS NOS (2) ANXIETY STATE NOS (3) Cholecystectomy (4) Chronic back pain (5) Diverticulitis (6) DIVERTICULOSIS COLON (W/O MENT OF HEMORRHAGE) (7) History of endoscopy (8) HYPERLIPIDEMIA NEC/NOS (9) Hysterectomy (10) IBS (irritable bowel syndrome) (11) LUMBAGO (12) Lumbar stenosis with neurogenic claudication (13) orthopedic surgery (14) Ovarian cyst (15) OVARIAN CYST NEC/NOS (16) POSTLAMINECT SYND-LUMBAR (17) Spinal surgery (18) TOBACCO USE DISORDER (19) Ulcerative colitis Surgical Problems: (1) Abdominal hysterectomy (2) History of colonoscopy (3) Postoperative state Additional History Hepatic Disease: No Endocrine Disorder: No Kidney Disease: No Hypertension: No Heart Disease: No Bleeding Tendencies: No Infectious Diseases: No Allergies Coded Allergies: Mesalamine (Verified Allergy, Intermediate, RASH, 07/05/17) Grass (Verified Allergy, Unknown, SNEEZING, STUFFY, 07/05/17) Nitrofurantoin (Verified Allergy, Unknown, UPSET STOMACH, 07/05/17) POLLEN (Verified Allergy, Unknown, STUFFINESS, 07/05/17) Quetiapine (Verified Adverse Reaction, Intermediate, HEADACHE, 07/05/17) Adhesives (Verified Adverse Reaction, Mild, welts, 07/05/17) pt states not allergic to latex tape around iv gave her welts Latex (Verified Adverse Reaction, Mild, RASH, 07/05/17) PATIENT HAS ITCHING DENIES RESP INVOLVEMENT Amoxicillin (Verified Adverse Reaction, Unknown, Diarrhea, 07/05/17) Aspirin (Verified Adverse Reaction, Unknown, avoids secondary to ulcerative colitis , 07/05/17) Clavulanic Acid (Verified Adverse Reaction, Unknown, Diarrhea, 07/05/17) Home Medications Scheduled Amitriptyline HCl (Amitriptyline HCl), 10 MG PO HS Baclofen (Lioresal), 10 MG PO TID Buspirone Hcl (Buspar), 15 MG PO BID Citalopram (Citalopram Hydrobromide), 40 MG PO HS Dexlansoprazole (Dexilant), 1 TAB PO BID Gabapentin (Gabapentin), 300 MG PO TID Infliximab (Remicade), 1 DOSE IV Q8WK Multivit/Min/Iron/Fol Ac/Pren ( Vitamin), 1 TAB PO QAM Ranitidine Hcl (Zantac), 300 MG PO HS Venlafaxine Hcl (Venlafaxine Extended Rel), 75 MG PO QAM Scheduled PRN Acetaminophen (Tylenol), 1,500 MG PO UD PRN for Pain Clonazepam (Klonopin), 1 MG PO TID PRN for RN Diclofenac Sodium (Topical) (Voltaren 1% Top Gel), 1 APPLN EX DAILY PRN for Pain Dicyclomine Hcl (Dicyclomine Hcl), 10 MG PO TID PRN for ABDOMINAL CRAMPING Diphenhydramine Hcl (Benadryl), 50 MG PO Q8WK PRN for Prior to Remicade Ondansetron Hcl (Zofran), 4 MG PO Q8 PRN for Nausea or Vomiting Oxycodone HCl (Oxycodone HCl), 5-10 MG PO Q4H PRN for Moderate - severe pain Physical Examination Skin: warm/dry, no rash Eyes: normal inspection, EOMI, sclerae normal ENT: normal ENT inspection, pharynx normal Head: normocephalic, atraumatic Neck: supple, no adenopathy, trachea midline Respiratory/Chest: lungs clear, normal breath sounds, no respiratory distress Cardiovascular: regular rate, rhythm, no edema, no murmur Abdomen / GI: normal bowel sounds, non tender Back: normal inspection Extremities: normal inspection, normal range of motion Neurologic/Psych: no motor/sensory deficits, alert, normal reflexes, oriented x 3 Diagnosis Right sacroiliitis Plan of Treatment Right SI joint fusion
[2017-07-05] MEDS ORDERED: ATROPINE SULFATE 0.1 MG/ML 5ML SYR IV PRN (11:45)
[2017-07-05] MEDS ORDERED: ONDANSETRON INJ 2 MG/ML 2 ML VIAL IV PRN (11:45)
[2017-07-05] MEDS ORDERED: EpHEDrine SULFATE INJ 50 MG/ML AMP IV PRN (11:45)
[2017-07-05] MEDS ORDERED: LABETALOL HCL IV 5 MG/ML 20ML IV PRN (11:45)
[2017-07-05] MEDS ORDERED: HYDROmorphone INJ 1 MG/ML SYR IV PRN (11:45)
[2017-07-05] MEDS ORDERED: MEPERIDINE HCL 25 MG/ML CARP IV PRN (11:45)
[2017-07-05] MEDS ORDERED: BUPIVACAINE/EPINEPHRINE 0.5% MPF 1:200,000 10 ML VIAL ONE ×2 (12:05)
[2017-07-05] MEDS ORDERED: BACITRACIN 50000 UNIT VIAL ONE (12:05)
[2017-07-05] MEDS ORDERED: HYDROmorphone INJ 2 MG/ML SYR/VIAL ONE ×2 (12:53→13:14)
[2017-07-05] MEDS ORDERED: PROPOFOL IV EMULSION 10 MG/ML 20 ML VIAL IV ONE (13:02)
[2017-07-05] MEDS ORDERED: LIDOCAINE HCL 2% 2 ML VIAL (20MG/ML) ONE (13:02)
[2017-07-05] MEDS ORDERED: ONDANSETRON INJ 2 MG/ML 2 ML VIAL ONE ×2 (13:02→13:14)
[2017-07-05] MEDS ORDERED: ROCURONIUM BROMIDE 10 MG/ML 5 ML VIAL IV ONE (13:02)
[2017-07-05] MEDS ORDERED: DEXAMETHASONE SOD INJ 4 MG/ML VIAL ONE (13:02)
[2017-07-05] MEDS ORDERED: RXC5 PO (13:10)
--- NOTE | 2017-07-05 13:11 | Discharge Instructions ---
Discharge Instructions Date of Service Jul 05, 2017. Admission Reason for Admission: Si Joint Dysfunction Discharge Discharge Diagnosis / Problem: sacroiliitis Discharge Goals Goal(s): Improve function Activity Recommendations Activity Limitations: per Instructions/Follow-up section Shower/Bathe: may shower/bathe in 3 days Weightbearing Status: Right toe touch . Instructions / Follow-Up Instructions / Follow-Up Patient follow-up in 2 weeks. She may shower postop day #2. Again toe-touch weightbearing to the right lower extremity. Current Hospital Diet Patient's current hospital diet: Discharge Diet Recommended Diet: Regular Diet Procedures Procedures Performed: Right Sacroiliac Joint Fusion, Use of Osteoamp Pending Studies Studies pending at discharge: no Medical Emergencies . Who to Call and When: Medical Emergencies: If at any time you feel your situation is an emergency, please call 911 immediately. . Non-Emergent Contact Non-Emergency issues call your: Primary Care Provider . "Provider Documentation" section prepared by Jose Luis Castro. . VTE Core Measure Inpt VTE Proph given/why not?: Sydnie Spivey, SCD's
[2017-07-05] MEDS ORDERED: KETOROLAC TROMETHAMINE 30 MG/ML VIAL ONE (13:14)
[2017-07-05] MEDS ORDERED: NEOSTIGMINE METHYLSULFATE 1 MG/ML 10ML VIAL ONE (13:14)
[2017-07-05] MEDS ORDERED: GLYCOPYRROLATE INJ 0.2 MG/ML VIAL ONE (13:14)
[2017-07-05] MEDS ORDERED: ACETAMINOPHEN 325 MG TAB PO PRN (13:15)
[2017-07-05] MEDS ORDERED: KETOROLAC TROMETHAMINE 30 MG/ML VIAL IV. PRN (13:15)
--- NOTE | 2017-07-05 13:21 | [facility] Operative Report ---
Operative Report Operative Date Jul 05, 2017. Pre-Operative Diagnosis Right sacroiliitis Post-Operative Diagnosis Right sacroiliitis Procedure(s) Performed Right Sacroiliac Joint Fusion, Use of Osteoamp Surgeon Dr. Jose Luis Castro Nurse Emergency Room Surgeon(s) Hanna Arriola PA-C Estimated Blood Loss 25ml Findings None Specimens None per surgeon Description of Procedure Patient was met with preoperatively case discussed all questions are dressed. After informed consent patient was taken to the operative suite and underwent intubation and placed in a prone position the Scott table with chest pads and hip bolsters. The right upper buttock was then prepped and draped in normal sterile fashion. We identified the posterior slope of the sacrum on lateral views. 3 cm incision was placed. K wire was then positioned in the uppermost portion of the sacrum verifying our views in AP lateral inlet outlet views. We dilated up to a 10 mm cannula. Measuring device utilized to determine a 45 mm screw. We drilled across the SI joint. The locally harvested graft combined with ostial amp was then placed in a slotted 45 mm EMANUEL-coated screw. This is placed across the joint without difficulty. The guide was then used to placed a more distal screw. Again a K wire was placed across SI joint verifying position in AP lateral inlet outlet views. We measured a 40 mm screw. Again the cannulas were used. And EMANUEL-coated slotted screw filled with bone graft was then placed across the joint without difficulty. Again excellent fit was noted. I then used the guide for 1 last distal screw. Again a guidewire was placed with fluoroscopy. This was measured be a 35 mm screw. Again EMANUEL-coated slotted screw filled with bone graft was then placed with fluoroscopic visualization. All 3 screws had excellent feel. Guidewire was removed incision copious irrigated and closed with subcutaneous Vicryl and Monocryl final skin closure. Patient was then awakened taken to PACU in stable condition. Please note Hanna Diaz was present throughout the entire procedure involved in patient positioning complex portions of surgery and final skin closure. I attest to the content of the Intraoperative Record and any orders documented therein. Any exceptions are noted below.
--- NOTE | 2017-07-05 13:24 | DIAGNOSTIC IMAGING REPORT ---
SACRUM HISTORY: 46 years-old Female RT SACROILIAC JOINT FUSION status post SI joint fusion. COMPARISON: CT abdomen and pelvis 11/08/2016 TECHNIQUE: 3 spot fluoroscopic images of the sacroiliac joint on the right were obtained utilizing 73.1 seconds of fluoroscopy time. FINDINGS: There are 3 cannulated screws fixating the mid right sacroiliac joint from a lateral approach. Alignment is satisfactory. On the lateral projection posterior interbody cira and screw fusion hardware is seen at L4-L5. Discectomy changes are present at L4-L5 and L5-S1. IMPRESSION: Status post fusion of the right sacroiliac joint with satisfactory alignment. Please see procedural report for further details. The above report was generated using voice recognition software. It may contain grammatical, syntax or spelling errors. Electronically signed by: Rangel Iglesias M.D. 07/05/2017 1:23 PM Dictated Date/Time: 07/05/2017 1:22 PM
[2017-07-05] MEDS ORDERED: ESMOLOL HCL 10 MG/ML 10 ML VIAL ONE (13:33)
[2017-07-05] MEDS: FENTANYL CITRATE INJ 50 MCG/1 ML 2 ML VIAL IV PRN ×3 (13:39→13:50)
--- NOTE | 2017-07-05 14:12 | Anesthesiology Progress Note ---
Anesthesia Post Op Note Date & Time Jul 05, 2017 at 14:12 Vital Signs Pain Intensity: 4 Vital Signs Past 12 Hours Date Time Temp Pulse Resp B/P (MAP) Pulse Ox O2 Delivery O2 Flow Rate FiO2 07/05/17 14:05 36.3 89 13 105/57 96 Nasal Cannula 2 07/05/17 13:55 86 14 121/75 96 Nasal Cannula 2 07/05/17 13:45 70 15 121/81 100 Oxymask 10 07/05/17 13:35 94 15 120/87 100 Oxymask 10 07/05/17 13:27 36.4 100 22 120/81 100 Oxymask 10 07/05/17 11:01 36.8 82 16 137/80 99 Room Air Notes Mental Status: alert / awake / arousable, participated in evaluation Pt Amnestic to Procedure: Yes Nausea / Vomiting: adequately controlled Pain: adequately controlled Airway Patency, RR, SpO2: stable & adequate BP & HR: stable & adequate Hydration State: stable & adequate Anesthetic Complications: no major complications apparent
[2017-07-05] MEDS: OXYCODONE HCL IR 5 MG TAB (IMMEDIATE RELEASE) PO PRN ×3 (14:44→17:40)
[2017-07-05] MEDS: HYDROmorphone INJ 1 MG/ML SYR IV PRN ×2 (15:41→17:13)
[2017-07-05 17:20] VITALS: BP 125/81; PULSE 94; TEMP 36.8; O2SAT 95
[2017-07-05] MEDS ORDERED: NURSING VERBAL MED ORDER ONE (17:30)
== END 2017-07-05 18:00 | disposition home or self-care (01) ==
LOC: C.ACU 10:24 → CANBEDREQ 14:02 → C.ACU 18:00
PROVIDERS: ATTEND Orthopaedic Surgery Orthopaedic Surgery of the Spine
DX: M46.1 Sacroiliitis, not elsewhere classified (principal); M53.3 Sacrococcygeal disorders, not elsewhere classified; F41.9 Anxiety disorder, unspecified; E78.5 Hyperlipidemia, unspecified; Z72.0 Tobacco use; Z79.899 Other long term (current) drug therapy

== ENCOUNTER → 2018-02-02 | Outpatient (CLI) | payer OTHER ==
[~2018-02-02] MED LIST changes: -BND25 PO; -CEFAZOLIN 1000MG/55 ML D5W IV SCH; +DIPH25CA5 PO; +GABA-1219 PO; -GABA1CAP4 PO; -LACTATED RINGER'S 1000ML 1,000 ML IV SCH; -RXC5 PO; -TRAZ50TA35 PO
[2018-02-02 14:43] LABS: HEMATOCRIT 40.7 % (37-47); HEMOGLOBIN 13.7 g/dL (12.0-16.0); MEAN CELL VOLUME 85.5 fL (80-100); MEAN CORPUSCULAR HEMOGLOBIN 28.8 pg (25-34); MEAN CORPUSCULAR HGB CONC 33.7 g/dl (32-36); PLATELET COUNT 196 K/uL (130-400); RED CELL DISTRIBUTION WIDTH CV 13.8 % (11.5-14.5); WHITE BLOOD COUNT 6.51 K/uL (4.8-10.8)
[2018-02-02 15:18] LABS: ALT/SGPT 26 U/L (12-78); BLOOD UREA NITROGEN 11 mg/dl (7-18); CALCIUM 8.9 mg/dl (8.5-10.1); CARBON DIOXIDE 28 mmol/L (21-32); CREATININE 0.69 mg/dl (0.60-1.20); GLUCOSE 92 mg/dl (70-99); POTASSIUM 3.7 mmol/L (3.5-5.1); SODIUM 138 mmol/L (136-145)
[2018-02-02 15:29] LABS: ALKALINE PHOSPHATASE 102 U/L (45-117); AST/SGOT 18 U/L (15-37); TOTAL PROTEIN 7.3 gm/dl (6.4-8.2)
== END | disposition home or self-care (01) ==
LOC: C.LAB 14:08
PROVIDERS: ATTEND Nurse Practitioner Family
DX: R07.9 Chest pain, unspecified (principal)

== ENCOUNTER → 2018-02-28 | Outpatient (CLI) | payer OTHER ==
[2018-02-28 12:14] LABS: HEMOGLOBIN 13.4 g/dL (12.0-16.0); MEAN CORPUSCULAR HEMOGLOBIN 28.8 pg (25-34); MEAN CORPUSCULAR HGB CONC 33.5 g/dl (32-36); MEAN PLATELET VOLUME 10.2 fL (7.4-10.4); PLATELET COUNT 214 K/uL (130-400); RED CELL DISTRIBUTION WIDTH CV 13.9 % (11.5-14.5); RED CELL DISTRIBUTION WIDTH SD 43.3 fL (36.4-46.3); WHITE BLOOD COUNT 6.43 K/uL (4.8-10.8)
== END | disposition home or self-care (01) ==
LOC: C.LAB 11:29
PROVIDERS: ATTEND Nurse Practitioner Family
DX: R89.9 Unspecified abnormal finding in specimens from other organs, systems and tissues (principal)

== ENCOUNTER 2021-11-02 06:08 | Inpatient (IN) ==
--- NOTE | 2021-10-14 14:34 | PAT Medication Instructions ---
Medication Instructions Date of Service October 14, 2021 Home Medications Medication Instructions Recorded Voltaren 1 % topical gel 4 g TOP QID #100 g NS MDD 16 GM to 12/22/20 (diclofenac sodium) any affected joint bupropion HCl 150 mg tablet,12 hr 150 mg PO Q12H #180 ea 02/01/21 sustained-release dicyclomine 10 mg capsule 20 mg PO TID 90 Days #540 cap 02/05/21 famotidine 20 mg tablet 20 mg PO BID #180 tab 05/03/21 lorazepam 0.5 mg tablet 0.5 mg PO TID PRN #20 tab 07/13/21 acetaminophen 325 mg capsule (Tylenol) 650 mg PO Q6H PRN ibuprofen 200 mg tablet 800 mg PO Q6 PRN infliximab 100 mg intravenous solution (Remicade) See Rx Instructions IV .COMPLEX Voltaren 1 % topical gel (diclofenac sodium) 4 g TOP QID #100 g NS MDD 16 GM to any affected joint bupropion HCl 150 mg tablet,12 hr sustained-release 150 mg PO Q12H dicyclomine 10 mg capsule 20 mg PO TID famotidine 20 mg tablet 20 mg PO BID lorazepam 0.5 mg tablet 0.5 mg PO TID PRN amitriptyline 10 mg tablet 10 mg PO HS atorvastatin 10 mg tablet (Lipitor) 10 mg PO QAM baclofen 10 mg tablet 10 mg PO TID dexlansoprazole 60 mg capsule,biphase delayed release (Dexilant) 60 mg PO QAM phentermine 30 mg capsule 30 mg PO QAM trazodone 150 mg tablet 75 mg PO HS venlafaxine 150 mg capsule,extended release 24 hr 150 mg PO QAM ASK your surgeon for instructions ibuprofen 200 mg tablet 800 mg PO Q6 PRN ASK your prescriber and surgeon infliximab 100 mg intravenous solution (Remicade) See Rx Instructions IV .COMPLEX STOP taking 24 hours before surgery Voltaren 1 % topical gel (diclofenac sodium) 4 g TOP QID #100 g NS MDD 16 GM to any affected joint DO NOT take the morning of surgery dicyclomine 10 mg capsule 20 mg PO TID famotidine 20 mg tablet 20 mg PO BID baclofen 10 mg tablet 10 mg PO TID Take morning of surgery With a small sip of water, OTHERWISE NOTHING TO EAT OR DRINK AFTER MIDNIGHT: acetaminophen 325 mg capsule (Tylenol) 650 mg PO Q6H PRN (okay to take up to 4 hours prior to surgery if needed) bupropion HCl 150 mg tablet,12 hr sustained-release 150 mg PO Q12H lorazepam 0.5 mg tablet 0.5 mg PO TID PRN (if needed) atorvastatin 10 mg tablet (Lipitor) 10 mg PO QAM dexlansoprazole 60 mg capsule,biphase delayed release (Dexilant) 60 mg PO QAM venlafaxine 150 mg capsule,extended release 24 hr 150 mg PO QAM Take evening before surgery acetaminophen 325 mg capsule (Tylenol) 650 mg PO Q6H PRN (if needed) bupropion HCl 150 mg tablet,12 hr sustained-release 150 mg PO Q12H dicyclomine 10 mg capsule 20 mg PO TID famotidine 20 mg tablet 20 mg PO BID lorazepam 0.5 mg tablet 0.5 mg PO TID PRN (if needed) amitriptyline 10 mg tablet 10 mg PO HS baclofen 10 mg tablet 10 mg PO TID trazodone 150 mg tablet 75 mg PO HS Other Notes STOP 5 day prior to surgery: phentermine 30 mg capsule 30 mg PO QAM If you have any questions please call us at [phone] or [phone] or [phone] or [phone]
--- NOTE | 2021-10-20 11:48 | Anesthesiology Consultation ---
Date of Service October 20, 2021 Assessment & Plan (1) Encounter for pre-operative examination: - awaiting EKG. - medical clearance 10/25/2021. - COVID screening: Per assessment on 10/20/2021: Travel screen negative, no known COVID-19 positive contacts or current COVID-19 related symptoms in past 2 weeks. Surgeon arranging preop COVID testing, pending future re-scheduled date. - Pt aware surgery cancelled due to current COVID surge and OR limitations. She states would like to complete appointment and pre-op testing; verbalized understanding labs may need repeated pending re-scheduled surgery date in future. Chart Review Chart Review: Acceptable Risk for Surgery (pending pre-op EKG and medical clearance) and Patient seen in Pre Admission Testing Teaching & Discussion Pre-Anesthesia Teaching/Discussion Notes: Instructed NPO after midnight before surgery, except medications with 15 cc of water. Medication instructions provided according to the PAT guidelines. History Surgery Operation Date: 11/01/21 10:05 Proposed Procedures p L2-L4 Decompression, L3-L4 Fusion, L4-S1 Hardware Removal, Spinal Cord Monitoring - Jose Luis Castro, Height/Weight Height: 5 ft 7 in Weight: 71.8 kg Allergies Allergy/AdvReac Type Severity Reaction Status Date / Time mesalamine Allergy Intermediate RASH Verified 10/14/21 11:41 latex Allergy Mild RASH Verified 10/14/21 11:41 adhesive AdvReac Intermediate SEVERE Verified 10/14/21 11:41 ITCHING, RASH, AND HIVES nitrofurantoin AdvReac Intermediate DYSPNEA Verified 10/14/21 11:41 quetiapine AdvReac Intermediate HEADACHE Verified 10/14/21 11:41 amoxicillin AdvReac Mild DIARRHEA Verified 10/14/21 11:41 aspirin AdvReac Mild ADVISED TO Verified 10/14/21 11:41 AVOID 2/2 ULCERATIVE COLITIS clavulanic acid AdvReac Mild DIARRHEA Verified 10/14/21 11:41 grass pollen-perennial rye, AdvReac Mild CONGESTION Verified 10/14/21 11:41 standar pollen extracts AdvReac Mild CONGESTION Verified 10/14/21 11:41 Medications Home Medications Medication Instructions Recorded Confirmed Last Taken acetaminophen 325 mg capsule 650 mg PO Q6H PRN 12/25/18 10/14/21 10/02/19 (Tylenol) ibuprofen 200 mg tablet 800 mg PO Q6 PRN 12/25/18 10/14/21 10/02/19 infliximab 100 mg intravenous See Rx Instructions IV .COMPLEX ea 09/03/19 10/14/21 Unknown solution (Remicade) Voltaren 1 % topical gel 4 g TOP QID #100 g NS MDD 16 GM to 12/22/20 10/14/21 Unknown (diclofenac sodium) any affected joint bupropion HCl 150 mg tablet,12 hr 150 mg PO Q12H #180 ea 02/01/21 10/14/21 Unknown sustained-release dicyclomine 10 mg capsule 20 mg PO TID 90 Days #540 cap 02/05/21 10/14/21 Unknown famotidine 20 mg tablet 20 mg PO BID #180 tab 05/03/21 10/14/21 Unknown lorazepam 0.5 mg tablet 0.5 mg PO TID PRN #20 tab 07/13/21 10/14/21 Unknown amitriptyline 10 mg tablet 10 mg PO HS 10/14/21 10/14/21 Unknown atorvastatin 10 mg tablet (Lipitor) 10 mg PO QAM 10/14/21 10/14/21 Unknown baclofen 10 mg tablet 10 mg PO TID 10/14/21 10/14/21 Unknown dexlansoprazole 60 mg 60 mg PO QAM 10/14/21 10/14/21 Unknown capsule,biphase delayed release (Dexilant) trazodone 150 mg tablet 75 mg PO HS 10/14/21 10/14/21 Unknown venlafaxine 150 mg 150 mg PO QAM 10/14/21 10/14/21 Unknown capsule,extended release 24 hr phentermine 30 mg capsule 30 mg PO QAM #30 cap 10/18/21 Unknown Past Medical History Medical History (Updated 10/21/21 @ 16:12 by Shobha Montaño PA-C) Anxiety controlled, stable per pt Chronic back pain Degenerative disc disease Depression controlled, stable per pt GERD (gastroesophageal reflux disease) controlled, stable per pt History of chronic ulcerative colitis REMICADE infusion q 8 weeks, follows with Dr. CRISTOBAL Case History of COVID-19 09/09/2021 home test kit - head cold, fatigue and cough - resolved no current issues - no record of test Hx of irritable bowel syndrome Hyperlipidemia Patient denies h/o stroke, seizures, heart attack, heart failure, DM, HTN, blood clots or blood transfusions. Exercise / Class Metabolic Activity II 4-5 Yardwork/Stairs/Walk up hill (denies CP or SOB with 1 FOS) Past Family History Family History Mother Myocardial infarction Ovarian cancer Arthritis Lung disease Tuberculosis Father Hypertension Denies family history of Colon cancer Prostate cancer Breast cancer Colorectal cancer Past Surgical History Surgical History (Updated 10/20/21 @ 15:48 by Shobha Montaño PA-C) History of ankle surgery left History of back surgery X5 History of esophagogastroduodenoscopy (EGD) Hx of cholecystectomy Hx of colonoscopy Hx of hysterectomy (~2003) TOTAL Hx of knee surgery B/L Hx of shoulder surgery B/L S/P fusion of sacroiliac joint 07/05/2017: Grade 1 view, MAC#3, ETT#7.0. No issues per anesthesia postop progress note. 12/25/2018 revision: Grade 2 view, MAC#3, ETT#7.5. No issues per anesthesia postop progress note. Past Anesthesia History No Hx of Anesthesia Complications and No Family Hx of Anesthesia Complications History of PONV No Hx of PONV and No Hx of Motion Sickness Social History Smoking Status: Current every day smoker tobacco type: cigarettes Smoking cigarettes per day: 1/2 ppd Do You Dip or Chew Tobacco: No Hx Alcohol Use: No Hx Substance Use: No substance use type: does not use Review of Systems Patient denies chest pain, shortness of breath, dyspnea on exertion, snoring, witnessed apneas, fever, chills, cough, wheezing, or palpitations. Physical Exam Vital Signs Vitals BP 105/73 P 89 TEMP 98.4 SP02 97% on RA RESP 17 Physical Full cervical extension range of motion without pain Full TMJ range of motion TMD 3 finger breaths Mallampati Score 3 Dentition: edentulous Lungs: normal respiratory effort. Clear throughout to auscultation, no adventitious breath sounds Cardiac: regular rate and rhythm, no murmurs noted Carotid arteries: negative bruit bilat Extremities: no distal extremity edema Lab Results Anesthesia Preop Results Results Anesthesia Widget: WBC 6.70 K/uL (4.8-10.8) 10/20/21 Hgb 13.2 g/dL (12.0-16.0) 10/20/21 Hct 39.9 % (37-47) 10/20/21 Plt 228 K/uL (130-400) 10/20/21 Na 143 mmol/L (136-145) 10/20/21 K 3.8 mmol/L (3.5-5.1) 10/20/21 Cl 112 mmol/L (98-107) H 10/20/21 CO2 26 mmol/L (21-32) 10/20/21 BUN 7 mg/dl (7-18) 10/20/21 Creat 0.72 mg/dl (0.6-1.2) 10/20/21 Glucose Level 92 mg/dl (70-99) 10/20/21 PT 9.9 Seconds (9.0-12.0) 10/20/21 PTT 31.0 Seconds (21.0-31.0) 10/20/21 INR 1.0 (0.9-1.1) 10/20/21 Urine Color Yellow 10/20/21 Urine Appearance Clear (Clear) 10/20/21 Urine pH 6.0 (4.5-7.5) 10/20/21 Urine Specific [place] 1.016 (1.000-1.030) 10/20/21 Urine Protein Negative (Negative) 10/20/21 Urine Glucose (UA) Negative (Negative) 10/20/21 Urine Ketones Negative (Negative) 10/20/21 Urine Blood Negative (Negative) 10/20/21 Urine Nitrite Negative (Negative) 10/20/21 Urine Bilirubin Negative (Negative) 10/20/21 Urine Urobilinogen Negative (Negative) 10/20/21 Urine Leukocyte Esterase Negative (Negative) 10/20/21 Blood Type B Positive 10/20/21 Antibody Screen NEGATIVE 10/20/21 Testing Electrocardiogram Date: 10/20/21 Chest X-Ray Date: 10/20/21 FINDINGS: Lung volumes are normal. Lungs are clear. There is no pneumothorax or pleural effusion. Cardiac size is normal. Mediastinal contours are normal. There is no evidence for pulmonary edema. IMPRESSION: No acute cardiopulmonary findings.
--- NOTE | 2021-10-26 13:48 | History & Physical Report ---
Date of Service October 26, 2021 Assessment & Plan (1) Lumbar stenosis with neurogenic claudication: Plan: Assessment adjacent level spinal stenosis L3-L4 with retrolisthesis and advanced neuroforaminal disease with progressive neuro deficit prickly affecting the rig ht leg. Plan at this point the patient is a marked decline in status has known adjacent level stenosis and retrolisthesis L3-L4 in order to prevent permanent deficit recommending urgent lumbar decompression fusion L3-L4 with removal of station L4-L5. History of Present Illness Chief Complaint: Back and right leg pain Primary Care Provider: Miguel Duncan, III, CASHIER MANAGER This is a 51-year-old female known to me the presents with worsening back pain rating into the right lower extremity. Is a deep shooting pain into the buttock anterior thigh to the knee. Markedly exacerbated standing and walking. She has undergone 2 epidural injections that have provided little to no long-term relief. She is failed oral pain medications. She notes weakness affecting the right leg particularly in the quadricep. Allergies Allergy/AdvReac Type Severity Reaction Status Date / Time mesalamine Allergy Intermediate RASH Verified 10/25/21 07:06 latex Allergy Mild RASH Verified 10/25/21 07:06 adhesive AdvReac Intermediate SEVERE Verified 10/25/21 07:06 ITCHING, RASH, AND HIVES nitrofurantoin AdvReac Intermediate DYSPNEA Verified 10/25/21 07:06 quetiapine AdvReac Intermediate HEADACHE Verified 10/25/21 07:06 amoxicillin AdvReac Mild DIARRHEA Verified 10/25/21 07:06 aspirin AdvReac Mild ADVISED TO Verified 10/25/21 07:06 AVOID 2/2 ULCERATIVE COLITIS clavulanic acid AdvReac Mild DIARRHEA Verified 10/25/21 07:06 grass pollen-perennial rye, AdvReac Mild CONGESTION Verified 10/25/21 07:06 standar pollen extracts AdvReac Mild CONGESTION Verified 10/25/21 07:06 Home Medications Medication Instructions Recorded Confirmed Type acetaminophen 325 mg capsule 650 mg PO Q6H PRN 12/25/18 10/25/21 History (Tylenol) ibuprofen 200 mg tablet 800 mg PO Q6 PRN 12/25/18 10/25/21 History infliximab 100 mg intravenous See Rx Instructions IV .COMPLEX ea 09/03/19 History solution (Remicade) Voltaren 1 % topical gel 4 g TOP QID #100 g NS MDD 16 GM to 12/22/20 10/25/21 Rx (diclofenac sodium) any affected joint bupropion HCl 150 mg tablet,12 hr 150 mg PO Q12H #180 ea 02/01/21 10/25/21 Rx sustained-release dicyclomine 10 mg capsule 20 mg PO TID 90 Days #540 cap 02/05/21 10/25/21 Rx famotidine 20 mg tablet 20 mg PO BID #180 tab 05/03/21 10/25/21 Rx lorazepam 0.5 mg tablet 0.5 mg PO TID PRN #20 tab 07/13/21 10/25/21 Rx amitriptyline 10 mg tablet 10 mg PO HS 10/14/21 10/25/21 History atorvastatin 10 mg tablet (Lipitor) 10 mg PO QAM 10/14/21 10/25/21 History baclofen 10 mg tablet 10 mg PO TID 10/14/21 10/25/21 History dexlansoprazole 60 mg 60 mg PO QAM 10/14/21 10/25/21 History capsule,biphase delayed release (Dexilant) venlafaxine 150 mg 150 mg PO QAM 10/14/21 10/25/21 History capsule,extended release 24 hr phentermine 30 mg capsule 30 mg PO QAM #30 cap 10/18/21 10/25/21 Rx trazodone 150 mg tablet 150 mg PO HS tab 10/25/21 10/25/21 History Past Med/Surg History Medical History Anxiety Chronic back pain Degenerative disc disease Depression GERD (gastroesophageal reflux disease) History of chronic ulcerative colitis History of COVID-19 Hx of irritable bowel syndrome Hyperlipidemia Surgical History History of ankle surgery History of back surgery History of esophagogastroduodenoscopy (EGD) Hx of cholecystectomy Hx of colonoscopy Hx of hysterectomy (~2003) Hx of knee surgery Hx of shoulder surgery S/P fusion of sacroiliac joint Family History Mother Myocardial infarction Ovarian cancer Arthritis Lung disease Tuberculosis Father Hypertension Denies family history of Colon cancer Prostate cancer Breast cancer Colorectal cancer Social History Smoking Status: Current every day smoker Tobacco Type: Cigarettes packs per day: 0.75; Second Hand Exposure: No; Do You Dip or Chew Tobacco: No; Tobacco Cessation Education Requested by Patient: No Hx Alcohol Use: No Hx Substance Use: No Preferred Language: Albanian Communication Ability: Effective Visual Impairment: No Limitations Hearing Ability: Normal Scrap Materials Buyer Required: No Beliefs That Will Affect Care: None marital status: Current Living Situation: Spouse current occupational status: unemployed Other Information That Helps Us Care for You: No Feels Safe at Home: Yes Safety Concerns: Feels Safe At This Time Childhood Exposure to Second-Hand Smoke: Yes caffeine: Yes during the past year weight has: decreased > 10 lbs Dental Care, Regularly: No Physical Activity Frequency: 3-4 Times per Week Seatbelt Use: always Sunscreen Use: No Assistive Devices: Walker Physical Exam Physical Exam: Patient is alert and oriented. Heart regular rhythm. Bench exam reveals 4 months or 5 right quadriceps compared to far from the left. Plantar flexion dorsiflexion intact with marked sensory deficits to the right lower extremity compared to left.
--- NOTE | 2021-10-27 15:25 | History & Physical Report ---
Date of Service October 27, 2021 Assessment & Plan (1) Lumbar stenosis with neurogenic claudication: Plan: Assessment lumbar spinal stenosis. Plan at this time recommending lumbar decompression L2-L4 with fusion L3-L4 and hardware removal L4-S1. Patient demonstrates progressive neurologic deficit with weakness particular affecting the quadriceps. This is consistent with the area of her neural compression. In order to avoid permanent deficit we are recommending urgent surgery. History of Present Illness Chief Complaint: Back and bilateral leg pain Primary Care Provider: Miguel Duncan, III, GARAGE DOOR INSTALLER This is a 51-year-old female who presents with marked decline in status with worsening back and leg pain. This markedly limiting her quality of life and ability to ambulate. She is failed extensive course of nonoperative care including physical therapy multiple epidural injections. Allergies Allergy/AdvReac Type Severity Reaction Status Date / Time mesalamine Allergy Intermediate RASH Verified 10/25/21 07:06 latex Allergy Mild RASH Verified 10/25/21 07:06 adhesive AdvReac Intermediate SEVERE Verified 10/25/21 07:06 ITCHING, RASH, AND HIVES nitrofurantoin AdvReac Intermediate DYSPNEA Verified 10/25/21 07:06 quetiapine AdvReac Intermediate HEADACHE Verified 10/25/21 07:06 amoxicillin AdvReac Mild DIARRHEA Verified 10/25/21 07:06 aspirin AdvReac Mild ADVISED TO Verified 10/25/21 07:06 AVOID 2/2 ULCERATIVE COLITIS clavulanic acid AdvReac Mild DIARRHEA Verified 10/25/21 07:06 grass pollen-perennial rye, AdvReac Mild CONGESTION Verified 10/25/21 07:06 standar pollen extracts AdvReac Mild CONGESTION Verified 10/25/21 07:06 Home Medications Medication Instructions Recorded Confirmed Type acetaminophen 325 mg capsule 650 mg PO Q6H PRN 12/25/18 10/25/21 History (Tylenol) ibuprofen 200 mg tablet 800 mg PO Q6 PRN 12/25/18 10/25/21 History infliximab 100 mg intravenous See Rx Instructions IV .COMPLEX ea 09/03/19 10/25/21 History solution (Remicade) Voltaren 1 % topical gel 4 g TOP QID #100 g NS MDD 16 GM to 12/22/20 10/25/21 Rx (diclofenac sodium) any affected joint bupropion HCl 150 mg tablet,12 hr 150 mg PO Q12H #180 ea 02/01/21 10/25/21 Rx sustained-release dicyclomine 10 mg capsule 20 mg PO TID 90 Days #540 cap 02/05/21 10/25/21 Rx famotidine 20 mg tablet 20 mg PO BID #180 tab 05/03/21 10/25/21 Rx lorazepam 0.5 mg tablet 0.5 mg PO TID PRN #20 tab 07/13/21 10/25/21 Rx amitriptyline 10 mg tablet 10 mg PO HS 10/14/21 10/25/21 History atorvastatin 10 mg tablet (Lipitor) 10 mg PO QAM 10/14/21 10/25/21 History baclofen 10 mg tablet 10 mg PO TID 10/14/21 10/25/21 History dexlansoprazole 60 mg 60 mg PO QAM 10/14/21 10/25/21 History capsule,biphase delayed release (Dexilant) venlafaxine 150 mg 150 mg PO QAM 10/14/21 10/25/21 History capsule,extended release 24 hr phentermine 30 mg capsule 30 mg PO QAM #30 cap 10/18/21 10/25/21 Rx trazodone 150 mg tablet 150 mg PO HS tab 10/25/21 10/25/21 History Past Med/Surg History Medical History Anxiety Chronic back pain Degenerative disc disease Depression GERD (gastroesophageal reflux disease) History of chronic ulcerative colitis History of COVID-19 Hx of irritable bowel syndrome Hyperlipidemia Surgical History History of ankle surgery History of back surgery History of esophagogastroduodenoscopy (EGD) Hx of cholecystectomy Hx of colonoscopy Hx of hysterectomy (~2003) Hx of knee surgery Hx of shoulder surgery S/P fusion of sacroiliac joint Family History Mother Myocardial infarction Ovarian cancer Arthritis Lung disease Tuberculosis Father Hypertension Denies family history of Colon cancer Prostate cancer Breast cancer Colorectal cancer Social History Smoking Status: Current every day smoker Tobacco Type: Cigarettes packs per day: 0.75; Second Hand Exposure: No; Do You Dip or Chew Tobacco: No; Tobacco Cessation Education Requested by Patient: No Hx Alcohol Use: No Hx Substance Use: No Preferred Language: Swedish Communication Ability: Effective Visual Impairment: No Limitations Hearing Ability: Normal 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 She only stand and ambulate a short distance comfortably. She walks in a stooped posture. Bench exam reveals deficits in a 4-/5 right quadriceps compared to left. Plantar flexion dorsiflexion appears to be intact. Deep tendon reflexes diminished..
[~2021-11-02 06:08] MED LIST changes: -ACET-1256 PO; +ACETAMINOPHEN 500 MG TAB PO SCH; -AMT10 PO; -BACL10TA PO; -BUSP15TA70 PO; -CITA40TA4 PO; -CLON1TAB3 PO; +CeleBREX 200 MG CAP PO SCH; -DEXL30CA5 PO; -DICL1GEL12 EX; -DICY10CA12 PO; -DIPH25CA5 PO; -GABA-1219 PO; +GABAPENTIN 900 MG DOSE PO SCH; +LR 15ML/HR IV SCH; -ONDA4TAB46 PO; -PRENTAB26 PO; -RANI300T PO; -RMCI IV; -VENL75CA73 PO; +ceFAZolin 1000MG 1,000 MG/7.5 ML SYR IV SCH
[2021-11-02] MEDS ORDERED: ACETAMINOPHEN 500 MG TAB ONE (06:26)
[2021-11-02] MEDS ORDERED: CeleBREX 200 MG CAP ONE (06:26)
[2021-11-02] MEDS ORDERED: GABAPENTIN 300 MG CAP ONE (06:27)
[2021-11-02] MEDS ORDERED: HYDROmorphone INJ 1 MG/ML SYRINGE IV PRN (06:32)
[2021-11-02] MEDS ORDERED: ePHEDrine sulfate 50 MG/ML AMP IV PRN (06:32)
[2021-11-02] MEDS ORDERED: ATROPINE SULFATE 0.1 MG/ML 10ML SYR IV PRN (06:32)
[2021-11-02] MEDS ORDERED: ONDANSETRON INJ 2 MG/ML 2 ML VIAL IV PRN ×2 (06:32→11:23)
[2021-11-02] MEDS ORDERED: EPINEPHrine INJ 1 MG/ML AMP ONE (06:57)
[2021-11-02] MEDS ORDERED: BUPIVACAINE 0.5 % 5 MG/1 ML MPF 30ML VIAL ONE (06:57)
[2021-11-02] MEDS ORDERED: SUGAMMADEX SODIUM 200 MG/2 ML VIAL IV ONE (07:13)
[2021-11-02] MEDS ORDERED: PROPOFOL IV EMULSION 10 MG/ML 20 ML VIAL IV ONE (07:17)
[2021-11-02] MEDS ORDERED: GLYCOPYRROLATE 0.2 MG/ML VIAL ONE (07:17)
[2021-11-02] MEDS ORDERED: ONDANSETRON INJ 2 MG/ML 2 ML VIAL ONE (07:17)
[2021-11-02] MEDS ORDERED: MIDAZOLAM HCL 1 MG/ML 2ML VIAL ONE (07:17)
[2021-11-02] MEDS ORDERED: LIDOCAINE 2% 2 ML VIAL/AMP(20MG/ML) INFIL ONE (07:17)
[2021-11-02] MEDS ORDERED: fentaNYL citrate 100 MCG/2 ML VIAL ONE (07:17)
[2021-11-02] MEDS ORDERED: DEXAMETHASONE SOD INJ 4 MG/ML VIAL ONE (07:17)
[2021-11-02] MEDS ORDERED: NEOSTIGMINE METHYLSULFATE 1 MG/ML 10ML VIAL ONE (07:17)
--- NOTE | 2021-11-02 07:52 | History & Physical Bridge Note ---
Date of Service November 02, 2021 History & Physical Bridge Note I have examined the patient, reviewed the History & Physical and in the interval since the performance of the History & Physical I have noted the following changes of clinical significance: no changes noted
--- NOTE | 2021-11-02 07:53 | History & Physical Report ---
Date of Service November 02, 2021 Assessment & Plan (1) Lumbar stenosis with neurogenic claudication: Plan: L2-L4 decompression, L3-4 fusion, L4-S1 hardware removal History of Present Illness Chief Complaint: Back and leg pain Primary Care Provider: Miguel Duncan, III, HEAT CURER This is a 51-year-old female who presents with car persistent back and leg pain after failing course of nonoperative care she is here for surgical intervention. Allergies Allergy/AdvReac Type Severity Reaction Status Date / Time mesalamine Allergy Intermediate RASH Verified 11/02/21 06:36 latex Allergy Mild RASH Verified 11/02/21 06:36 adhesive AdvReac Intermediate SEVERE Verified 11/02/21 06:36 ITCHING, RASH, AND HIVES nitrofurantoin AdvReac Intermediate DYSPNEA Verified 11/02/21 06:36 quetiapine AdvReac Intermediate HEADACHE Verified 11/02/21 06:36 amoxicillin AdvReac Mild DIARRHEA Verified 11/02/21 06:36 aspirin AdvReac Mild ADVISED TO Verified 11/02/21 06:36 AVOID 2/2 ULCERATIVE COLITIS clavulanic acid AdvReac Mild DIARRHEA Verified 11/02/21 06:36 grass pollen-perennial rye, AdvReac Mild CONGESTION Verified 11/02/21 06:36 standar pollen extracts AdvReac Mild CONGESTION Verified 11/02/21 06:36 Home Medications Medication Instructions Recorded Confirmed Type acetaminophen 325 mg capsule 650 mg PO Q6H PRN 12/25/18 11/02/21 History (Tylenol) ibuprofen 200 mg tablet 800 mg PO Q6 PRN 12/25/18 11/02/21 History infliximab 100 mg intravenous See Rx Instructions IV .COMPLEX ea 09/03/19 11/02/21 History solution (Remicade) Voltaren 1 % topical gel 4 g TOP QID #100 g NS MDD 16 GM to 12/22/20 11/02/21 Rx (diclofenac sodium) any affected joint bupropion HCl 150 mg tablet,12 hr 150 mg PO Q12H #180 ea 02/01/21 11/02/21 Rx sustained-release dicyclomine 10 mg capsule 20 mg PO TID 90 Days #540 cap 02/05/21 11/02/21 Rx famotidine 20 mg tablet 20 mg PO BID #180 tab 05/03/21 11/02/21 Rx lorazepam 0.5 mg tablet 0.5 mg PO TID PRN #20 tab 07/13/21 11/02/21 Rx amitriptyline 10 mg tablet 10 mg PO HS 10/14/21 11/02/21 History atorvastatin 10 mg tablet (Lipitor) 10 mg PO QAM 10/14/21 11/02/21 History baclofen 10 mg tablet 10 mg PO TID 10/14/21 11/02/21 History dexlansoprazole 60 mg 60 mg PO QAM 10/14/21 11/02/21 History capsule,biphase delayed release (Dexilant) venlafaxine 150 mg 150 mg PO QAM 10/14/21 11/02/21 History capsule,extended release 24 hr phentermine 30 mg capsule 30 mg PO QAM #30 cap 10/18/21 11/02/21 Rx trazodone 150 mg tablet 150 mg PO HS tab 10/25/21 11/02/21 History Past Med/Surg History Medical History Anxiety Chronic back pain Degenerative disc disease Depression GERD (gastroesophageal reflux disease) History of chronic ulcerative colitis History of COVID-19 Hx of irritable bowel syndrome Hyperlipidemia Surgical History History of ankle surgery History of back surgery History of esophagogastroduodenoscopy (EGD) Hx of cholecystectomy Hx of colonoscopy Hx of hysterectomy (~2003) Hx of knee surgery Hx of shoulder surgery S/P fusion of sacroiliac joint Family History Mother Myocardial infarction Ovarian cancer Arthritis Lung disease Tuberculosis Father Hypertension Denies family history of Colon cancer Prostate cancer Breast cancer Colorectal cancer Social History Smoking Status: Current every day smoker Tobacco Type: Cigarettes packs per day: 0.75; Second Hand Exposure: No; Do You Dip or Chew Tobacco: No; Tobacco Cessation Education Requested by Patient: No Hx Alcohol Use: No Hx Substance Use: No Preferred Language: Kenyan Communication Ability: Effective Visual Impairment: No Limitations Hearing Ability: Normal Typing Section Chief Required: No Beliefs That Will Affect Care: None marital status: Current Living Situation: Spouse current occupational status: unemployed Other Information That Helps Us Care for You: No Feels Safe at Home: Yes Safety Concerns: Feels Safe At This Time Childhood Exposure to Second-Hand Smoke: Yes caffeine: Yes during the past year weight has: decreased > 10 lbs Dental Care, Regularly: No Physical Activity Frequency: 3-4 Times per Week Seatbelt Use: always Sunscreen Use: No Assistive Devices: Walker Physical Exam Physical Exam: Patient is alert and oriented Heart regular in rhythm Lungs clear Results & Data ([facility]) Vital Signs (Past 12 Hours) Vital Signs Temp Pulse Resp BP Pulse Ox 11/02/21 06:29 36.9 C 87 20 112/78 99
[2021-11-02] MEDS ORDERED: HYDROmorphone INJ 2 MG/ML SYR/VIAL ONE (08:18)
[2021-11-02] MEDS ORDERED: FLOSEAL HEMOSTATIC MATRIX 10ML TOP ONE (09:04)
[2021-11-02] MEDS ORDERED: ePHEDrine sulfate 50 MG/ML SYR ONE (09:11)
[2021-11-02] MEDS ORDERED: PHENYLEPHRINE 100MCG/ML 5ML SYR ONE ×2 (09:11)
--- NOTE | 2021-11-02 09:52 | Operative Report ---
Post Operative Report Pre & Post Diagnosis Operation Date: 11/02/21 07:45 Pre-Op Diagnosis: Spinal Stenosis of Lumbar Region Post-Op Diagnosis: Spinal Stenosis of Lumbar Region I identified the patient and participated in the time-out.: Yes Procedure Operation Date: 11/02/21 07:45 Actual Procedures #1 removal of posterior instrumentation L4-5. #2 exploration of fusion L4-5. #3 lumbar decompression with bilateral medial facetectomies and foraminotomies L2-L3 L3-L4. #4 posterior spinal fusion L3-L4. #5 placement posterior instrumentation L3-L5. #6 interbody fusion L3-L4. #7 placement peek cage 10 x 22 mm at L3-L4 per #8 placement locally harvested morselized autograft in the posterior gutters. #9 placement use collagen sponge, and master graft in the posterior lateral gutters and I factor and interbody space. Surgeon Jose Luis Castro, Social Studies Department Chair Hanna Diaz Estimated Blood Loss 100 Findings Consistent with Post-Op Diagnosis Specimens None Indications This is a 51-year-old female who presents with above-mentioned diagnosis after failing course of nonoperative care she is here for surgical invention. Description of Procedure Patient was met with identified informed consent obtained. Patient was then taken to the operative suite underwent ablation placed in a prone position on the Scott table atop the Antwan frame. All bony prominences well-padded eyes inspected to ensure no external pressure placed upon the. This point the lumbar spine was prepped and draped in a sterile fashion. Sharp dissection with the assistance of Bovie cautery was performed down to and exposing the lamina and transverse processes of L3 and instrumentation at L4-L5 bilaterally. Then proceeded to move the rods and screws bilaterally. There was a broken screw L5 on the right. I did explore the fusion mass noting it to be intact and mature. I then performed a complete laminectomy of L3 partial laminectomy of L2 including bilateral medial facetectomies and foraminotomies addressing severe spinal stenosis and foraminal disease. Pedicle screws were then placed in L3-L4 bilaterally with assistance of fluoroscopy and appropriately sized rods placed. By way of a transforaminal approach on the right complete discectomy of L3-L4 was performed endplates curetted to subcortical being bone and a 11 x 22 mm peek cage filled with I factor tapped in position. The rods were then compressed locked in final position bilaterally. The transverse processes of L2-3 and L4 b urred to subcortical bleeding bone. Infuse collagen sponge master graft local autograft was placed in the posterior gutters. 15 round ZAK drain inserted. The incision was then closed with 1 Vicryl to fascia 2-0 Vicryl subcutaneously and 4 Monocryl for final skin closure. Steri-Strip sterile dressing was placed. Patient will continue PACU stable condition. Please note spinal cord monitoring was utilized at the procedure no changes noted. Lastly Hanna Diaz was present at the entire procedure and all the patient existing complex portions of the surgery and final skin closure. I attest to the content of the Intraoperative Record and any orders documented therein. Any exceptions are noted below.
[2021-11-02] MEDS ORDERED: ROCURONIUM BROMIDE 10 MG/ML 5 ML VIAL IV ONE (09:57)
[2021-11-02] MEDS: fentaNYL citrate 100 MCG/2 ML VIAL IV PRN ×2 (10:15→10:27)
--- NOTE | 2021-11-02 10:30 | Fluoroscopy Report ---
FL lumbar spine 2-3V CLINICAL HISTORY: L2-L4 DECOMPRESSION L3-L4 FUSION L4-S1 HW REMOVAL COMPARISON STUDY: None. FLUOROSCOPY TIME: 12 seconds. FINDINGS: 2 fluoroscopic spot images of the lumbar spine worsening a 4 view. There is posterior decom pression and fusion from L3 through S1 with pedicle screws and rods. The head of the right L5 pedicle screw has been removed. Right sacroiliac bolts are noted. IMPRESSION: Fluoroscopic assistance provided for lumbar spinal fusion as described above. ACT 112: Negative or not required by law. Electronically signed by: Arben Us M.D. 11/02/2021 10:29 AM
--- NOTE | 2021-11-02 10:57 | Anesthesiology Progress Note ---
Date of Service November 02, 2021 Anesthesia Post Procedure Vital Signs Vital Signs: Temp Pulse Pulse Resp BP Pulse Ox 11/02/21 10:53 96.8 F L 85 16 119/75 97 11/02/21 10:45 75 15 121/72 94 11/02/21 10:35 71 14 119/71 96 11/02/21 10:25 86 14 123/82 99 11/02/21 10:15 94 H 16 125/76 99 11/02/21 10:04 97.2 F L 99 H 12 132/88 98 11/02/21 06:29 98.4 F 87 20 112/78 99 Pain Intensity Right Hip: Pain Intensity: 5 Bilateral Back: Pain Intensity: 5 Transfer of Care Handoff Completed per policy Notes Mental Status: alert / awake / arousable and participated in evaluation Patient Amnestic to Procedure: Yes Nausea / Vomiting: adequately controlled Pain: adequately controlled Airway Patency, RR, SpO2: stable & adequate BP & HR: stable & adequate Hydration State: stable & adequate Anesthetic Complications: no major complications apparent and Pt Satisfied with anesthetic care
[2021-11-02] MEDS ORDERED: ACETAMINOPHEN 500 MG TAB PO PRN (11:23)
[2021-11-02] MEDS ORDERED: ONDANSETRON 4 MG OD TAB PO PRN (11:23)
[2021-11-02] MEDS ORDERED: FAMOTIDINE 20 MG TAB PO PRN (11:23)
[2021-11-02] MEDS ORDERED: diphenhydrAMINE Capsule 25 MG CAP PO PRN (11:23)
[2021-11-02] MEDS ORDERED: LORazepam 0.5 MG TAB PO PRN (11:23)
[2021-11-02] MEDS ORDERED: MAGNESIUM HYDROXIDE SUSP 30 ML UDC PO PRN (11:23)
[2021-11-02] MEDS ORDERED: hydrOXYzine HCl 25 MG TAB PO PRN (11:23)
[2021-11-02] MEDS ORDERED: DO NOT ADMINISTER PNEUMOCOCCAL VACCINE PRN (11:23)
[2021-11-02] MEDS ORDERED: DO NOT ADMINISTER FLU VACCINE PRN (11:23)
[2021-11-02] MEDS ORDERED: ALUMINUM/MAGNESIUM SUSP 30 ML UDC PO PRN (11:23)
[2021-11-02] MEDS ORDERED: NALOXONE HCL 0.4 MG/1 ML VIAL/CARP IV PRN (11:23)
[2021-11-02] MEDS ORDERED: bisacodyL 10 MG SUPP PR PRN (11:23)
[2021-11-02] MEDS ORDERED: LORazepam 0.5 MG/1 ML VIAL IV PRN (11:23)
[2021-11-02] MEDS ORDERED: HYDROmorphone INJ 0.5 MG/0.5 ML SYR IV PRN (11:23)
[2021-11-02] MEDS ORDERED: ACETAMINOPHEN 1,000 MG/100 ML VIAL IV PRN (11:23)
[2021-11-02] MEDS ORDERED: SOD PHOSPHATE/SOD BIPHOSPHATE ENEMA 132 ML BTL PR PRN (11:23)
[2021-11-02] MEDS ORDERED: METOCLOPRAMIDE HCL INJ 5 MG/ML 2 ML VIAL IV PRN (11:23)
[2021-11-02] MEDS ORDERED: PROMETHAZINE HCL 12.5 MG in SODIUM CHLORIDE 0.9% 50 ML IV PRN (11:23)
[2021-11-02] MEDS ORDERED: traMADol HCL 50 MG TABLET PO PRN (11:23)
[2021-11-02] MEDS: LACTATED RINGER'S 1,000 ML IV SCH ×2 (11:45→21:58)
[2021-11-02] MEDS: HYDROmorphone INJ 1 MG/ML SYRINGE IV PRN ×3 (11:55→20:25)
--- NOTE | 2021-11-02 11:56 | Hospitalist Consultation ---
Date of Consultation November 02, 2021 Assessment & Plan (1) Lumbar stenosis with neurogenic claudication: Post-op management as per Ortho surgery -pain control, bowel regimen as per Ortho PT ordered -ZAK drain management as per Ortho Dominguez in place, likely remove tomorrow after more mobile -check CBC, BMP in AM (2) Ulcerative colitis: last Remicade infusion 10/04/21 In remission for many years follows with [facility] Discussed with GI Dr. Leach and he said ok to continue next dose as planned on 11/29/21 as it is far enough out from her surgery (3) History of DVT (deep vein thrombosis): h/o right peroneal vein DVT in 11/2019 after Achilles tendon repair surgery, treated with Eliquis for 6 weeks Continue SCDs for now Discussed case with Dr. Castro given she has underlying UC, is a current smoker, and had back surgery, with h/o DVT, would be high rsk for DVT He is ok with starting Lovenox low dose SQ once daily after 48 hours from time of surgery (4) Current smoker: advised cessation and counseled on such and importance of improving wound healing after back surgery, but pt not ready to quit -start Nicotine patch 21mg TD daily (5) JANELLE (generalized anxiety disorder): continue home venlafaxine, trazodone, bupropion (6) Irritable bowel syndrome (IBS): continue Elavil, dicyclomine (7) Insomnia: continue trazodone (8) Chronic gastroesophageal reflux disease: continue PPI and Pepcid (9) Hyperlipidemia: continue atorvastatin (10) Depression: continue home venlafaxine, trazodone, bupropion (11) Persistent lymphocytosis: Ongoing for many years, since at least 2013, ALC 4400 on preop CBC similar to previous Peripheral smear from 2018 shows no atypia and no concern for hematologic disorder, could be secondary to UC medication as per Pathology Repeat peripheral smear in future if ALC>5000 DVT Proph- SCDs, start Lovenox 40mg SQ once daily on 11/04 and would recommend sending home on this for 1-2 weeks after discharge Dispo-continued stay, hospitalist service will follow along History of Present Illness Reason for Consultation: Medical Management Requesting Physician: Dr. Castro Attending Physician: Jose Luis Castro, DO History of Present Illness This pt is a 51 yo female with a h/o ulcerative colitis on Remicade infusions q8 weeks (last dose 10/04/21), RLE DVT after Achilles tendon repair, current smoker, GERD, Generalized anxiety disorder, depression, IBS, hyperlipidemia, C. diff colitis, and lumbar spinal stenosis with neurogenic claudication who is admitted to the hospital for urgent lumbar decompression and fusion of L3-L4 with removal of station L4-L5 with Dr. Castro. SHe is having some pain as she is immediately post-op, but otherwise feels well. Denies CP, SOB, abd pains, nausea. She ate some food for lunch. No other issues. Has a Dominguez in place. Last BM yesterday. She is requesting a nicotine patch and when asked if she wants to quit smoking, she states "I have tried before." Allergies Allergy/AdvReac Type Severity Reaction Status Date / Time mesalamine Allergy Intermediate RASH Verified 11/02/21 06:36 latex Allergy Mild RASH Verified 11/02/21 06:36 adhesive AdvReac Intermediate SEVERE Verified 11/02/21 06:36 ITCHING, RASH, AND HIVES nitrofurantoin AdvReac Intermediate DYSPNEA Verified 11/02/21 06:36 quetiapine AdvReac Intermediate HEADACHE Verified 11/02/21 06:36 amoxicillin AdvReac Mild DIARRHEA Verified 11/02/21 06:36 aspirin AdvReac Mild ADVISED TO Verified 11/02/21 06:36 AVOID 2/2 ULCERATIVE COLITIS clavulanic acid AdvReac Mild DIARRHEA Verified 11/02/21 06:36 grass pollen-perennial rye, AdvReac Mild CONGESTION Verified 11/02/21 06:36 standar pollen extracts AdvReac Mild CONGESTION Verified 11/02/21 06:36 Home Medications Medication Instructions Recorded Confirmed Type acetaminophen 325 mg capsule 650 mg PO Q6H PRN 12/25/18 11/02/21 History (Tylenol) ibuprofen 200 mg tablet 800 mg PO Q6 PRN 12/25/18 11/02/21 History infliximab 100 mg intravenous See Rx Instructions IV .COMPLEX ea 09/03/19 11/02/21 History solution (Remicade) Voltaren 1 % topical gel 4 g TOP QID #100 g NS MDD 16 GM to 12/22/20 11/02/21 Rx (diclofenac sodium) any affected joint bupropion HCl 150 mg tablet,12 hr 150 mg PO Q12H #180 ea 02/01/21 11/02/21 Rx sustained-release dicyclomine 10 mg capsule 20 mg PO TID 90 Days #540 cap 02/05/21 11/02/21 Rx famotidine 20 mg tablet 20 mg PO BID #180 tab 05/03/21 11/02/21 Rx lorazepam 0.5 mg tablet 0.5 mg PO TID PRN #20 tab 07/13/21 11/02/21 Rx amitriptyline 10 mg tablet 10 mg PO HS 10/14/21 11/02/21 History atorvastatin 10 mg tablet (Lipitor) 10 mg PO QAM 10/14/21 11/02/21 History baclofen 10 mg tablet 10 mg PO TID 10/14/21 11/02/21 History dexlansoprazole 60 mg 60 mg PO QAM 10/14/21 11/02/21 History capsule,biphase delayed release (Dexilant) venlafaxine 150 mg 150 mg PO QAM 10/14/21 11/02/21 History capsule,extended release 24 hr phentermine 30 mg capsule 30 mg PO QAM #30 cap 10/18/21 11/02/21 Rx trazodone 150 mg tablet 150 mg PO HS tab 10/25/21 11/02/21 History Patient History Medical History Anxiety controlled, stable per pt Chronic back pain Current smoker Degenerative disc disease Depression controlled, stable per pt GERD (gastroesophageal reflux disease) controlled, stable per pt History of chronic ulcerative colitis REMICADE infusion q 8 weeks, follows with GI, Case History of COVID-19 09/09/2021 home test kit - head cold, fatigue and cough - resolved no current issues - no record of test History of DVT (deep vein thrombosis) Hx of irritable bowel syndrome Hyperlipidemia Surgical History History of ankle surgery left History of back surgery X5 History of esophagogastroduodenoscopy (EGD) Hx of cholecystectomy Hx of colonoscopy Hx of hysterectomy (~2003) TOTAL Hx of knee surgery B/L Hx of shoulder surgery B/L S/P fusion of sacroiliac joint 07/05/2017: Grade 1 view, MAC#3, ETT#7.0. No issues per anesthesia postop progress note. 12/25/2018 revision: Grade 2 view, MAC#3, ETT#7.5. No issues per anesthesia postop progress note. 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 Required: No Beliefs That Will Affect Care: None marital status: Current Living Situation: Spouse current occupational status: unemployed Other Information That Helps Us Care for You: No Feels Safe at Home: Yes Safety Concerns: Feels Safe At This Time Childhood Exposure to Second-Hand Smoke: Yes caffeine: Yes during the past year weight has: decreased > 10 lbs Dental Care, Regularly: No Physical Activity Frequency: 3-4 Times per Week Seatbelt Use: always Sunscreen Use: No Assistive Devices: Walker Review of Systems Review of Systems: All systems reviewed & are unremarkable except as noted in HPI & below Physical Exam Constitutional: WD/WN, vitals as above Eyes: + anicteric sclerae; no conjunctival abnormality ENMT: external ear and nose normal, oropharynx normal Neck: trachea midline, no thyromegaly Respiratory: normal respiratory effort, lungs clear to auscultation Cardiovascular: RRR, no murmur, no edema Chest (Breasts): Chest: normal inspection of chest Gastrointestinal (Abdomen): normal bowel sounds, soft, nontender, no hepatosplenomegaly Musculoskeletal: Extremities: extremities normal to inspection; no cyanosis and no clubbing did not remove dressing from lower back, ZAK drain in place with serosanguineous fluid Skin: no rashes, warm and dry Neurologic: moves all extremities and awake; no focal motor deficits Psychiatric: A+Ox3, euthymic affect Genitourinary: Dominguez in place draining clear yellow urine Lymphatic: no lymphedema Results & Data Results & Data ([facility]) Vital Signs (Past 12 Hours) Vital Signs Temp Pulse Pulse Pulse Resp BP Pulse Ox 11/02/21 11:23 36.7 C 80 16 119/72 99 11/02/21 11:11 36 C L 81 14 118/71 96 11/02/21 10:55 36 C L 85 16 119/75 97 11/02/21 10:45 75 15 121/72 94 11/02/21 10:35 71 14 119/71 96 11/02/21 10:25 86 14 123/82 99 11/02/21 10:15 94 H 16 125/76 99 11/02/21 10:04 36.2 C L 99 H 12 132/88 98 11/02/21 06:29 36.9 C 87 20 112/78 99 Laboratory Results Preop labs reviewed Diagnostic Findings Preop CXR reviewed-normal ECG Additional Comments: Preop ECG--> NSR, rate 76, RSR' suggests right ventricular conduction delay, nonspecific TW abnormality, improved in inferior leads PG Care Time/CCT Total # of Minutes Spent Total Time Spent with Patient: Total time spent is greater than 50% in coordination of care (as documented) at patient's floor/unit and/or counseling patient: Coding Level of Care Code 34932 Inpt Consult Level 3 Diagnoses Hyperlipidemia E78.5 Ulcerative colitis K51.90 Lumbar stenosis with neurogenic claudication M48.062 JANELLE (generalized anxiety disorder) F41.1 Irritable bowel syndrome (IBS) K58.9 Insomnia G47.00 Chronic gastroesophageal reflux disease K21.9 Depression F32.9 Persistent lymphocytosis D72.820 History of DVT (deep vein thrombosis) Z86.718 Current smoker F17.200
[2021-11-02] MEDS: buPROPion SR 150 MG TABCR PO SCH ×2 (12:39→21:50)
[2021-11-02] MEDS: NICOTINE 21 MG/24 HR TDSY TD SCH (13:42)
[2021-11-02] MEDS: BACLOFEN 10 MG TAB PO SCH ×2 (13:43→21:50)
[2021-11-02] MEDS: DICYCLOMINE HCL 20 MG TAB PO SCH ×2 (13:43→21:51)
[2021-11-02] MEDS: KETOROLAC TROMETHAMINE 15 MG/ML VIAL IV SCH ×2 (13:43→20:57)
[2021-11-02] MEDS: oxyCODONE HCL IR 5 MG TAB (IMMEDIATE RELEASE) PO PRN ×2 (15:05→22:11)
[2021-11-02] MEDS: CLINDAMYCIN 600 MG in DEXTROSE 5% 50 ML IV SCH (15:10)
[2021-11-02] MEDS: AMITRIPTYLINE HCL 10 MG TAB PO SCH (21:49)
[2021-11-02] MEDS: DOCUSATE SODIUM/SENNA 50/8.6MG TAB PO SCH (21:51)
[2021-11-02] MEDS: FAMOTIDINE 20 MG TAB PO SCH (21:51)
[2021-11-02] MEDS: traZODone HCL 50 MG TAB PO SCH (21:52)
[2021-11-03] MEDS: CLINDAMYCIN 600 MG in DEXTROSE 5% 50 ML IV SCH (00:59)
[2021-11-03] MEDS: KETOROLAC TROMETHAMINE 15 MG/ML VIAL IV SCH ×2 (01:00→08:45)
[2021-11-03] MEDS: HYDROmorphone INJ 1 MG/ML SYRINGE IV PRN (01:30)
[2021-11-03] MEDS: POLYETHYLENE (MIRALAX) 17 GM PACK PO SCH ×3 (05:11→17:31)
[2021-11-03 06:20] LABS: Basophils # (auto) 0.02 K/uL (0-0.2); Basophils % (auto) 0.2 %; Eosinophils # (auto) 0.01 K/uL (0-0.5); Eosinophils % (auto) 0.1 %; Hematocrit (blood only) 31.2 % (37-47); Immature Granulocytes # (auto) 0.01 K/uL (0.00-0.02); Immature Granulocytes % (auto) 0.1 %; Lymphocytes # (auto) 3.53 K/uL (1.2-3.4); Lymphocytes % (auto) 34.4 %; Mean Corpuscular Hemoglobin 28.8 pg (25-34); Mean Corpuscular Hgb Conc 32.1 g/dL (32-36); Mean Corpuscular Volume 89.9 fL (80-100); Mean Platelet Volume 9.7 fL (7.4-10.4); Monocytes # (auto) 1.18 K/uL (0.11-0.59); Monocytes % (auto) 11.5 %; Neutrophils # (auto) 5.52 K/uL (1.4-6.5); Neutrophils % (auto) 53.7 %; Platelet Count 204 K/uL (130-400); RDW Coefficient of Variation 13.7 % (11.5-14.5); RDW Standard Deviation 45.3 fL (36.4-46.3); Red Blood Count 3.47 M/uL (4.2-5.4); White Blood Count 10.27 K/uL (4.8-10.8)
[2021-11-03 07:05] LABS: BUN Creatinine Ratio 15.1 (10-20); Calcium 8.3 mg/dl (8.5-10.1); Creatinine Clr Calc Pharmacy 104.4 ml/min; Est GFR (Non-African American) 104.4 ml/min; Potassium 3.7 mmol/L (3.5-5.1)
[2021-11-03] MEDS: oxyCODONE HCL IR 5 MG TAB (IMMEDIATE RELEASE) PO PRN ×3 (08:42→21:38)
[2021-11-03] MEDS: LACTATED RINGER'S 1,000 ML IV SCH (08:44)
[2021-11-03] MEDS: dexAMETHasone 6 MG in SYRINGE 0 ML IV SCH (09:45)
[2021-11-03] MEDS: NICOTINE 21 MG/24 HR TDSY TD SCH (09:47)
[2021-11-03] MEDS: DICYCLOMINE HCL 20 MG TAB PO SCH ×3 (09:47→20:21)
[2021-11-03] MEDS: VENLAFAXINE HCL XR 150 MG CAPXR PO SCH (09:47)
[2021-11-03] MEDS: PANTOprazole 40 MG TAB PO SCH (09:47)
[2021-11-03] MEDS: FAMOTIDINE 20 MG TAB PO SCH ×2 (09:47→20:21)
[2021-11-03] MEDS: buPROPion SR 150 MG TABCR PO SCH ×2 (09:47→20:21)
[2021-11-03] MEDS: BACLOFEN 10 MG TAB PO SCH ×3 (09:47→20:21)
[2021-11-03] MEDS: ATORVASTATIN 10 MG TAB PO SCH (09:48)
--- NOTE | 2021-11-03 13:05 | Orthopedic Progress Note ---
Date of Service November 03, 2021 Assessment & Plan (1) Lumbar stenosis with neurogenic claudication: Plan: At this time continue physical therapy we will obtain x-rays of the right hip. Hopefully discharge home in the next few days. Admission and Anticipated Discharge Date Admission Date: November 02, 2021 Subjective Patient's back pain and buttock symptoms have improved. Still struggling with right anterior groin pain with ambulation. Physical Exam Physical Exam: On exam she is good strength testing lower extremities. She does have a positive logroll on the right reproducing her right groin pain. Results & Data ([facility]) Vital Signs (Past 12 Hours) Vital Signs Temp Pulse Pulse Resp BP Pulse Ox 11/03/21 11:15 36.3 C L 73 14 112/73 99 11/03/21 08:42 86 106/67 11/03/21 07:19 37.0 C 84 12 89/45 L 95 11/03/21 05:10 85 93/51 L 11/03/21 03:50 37.0 C 87 16 93/45 L 95
--- NOTE | 2021-11-03 14:30 | XRay Report ---
SINGLE VIEW PELVIS; 2 VIEWS RIGHT HIP CLINICAL HISTORY: Right hip pain. FINDINGS: An AP view of the pelvis with AP and frog-leg views of the right hip are compared to study dated 10/02/2019. The skeletal structures are osteopenic. There is no radiographic evidence of acute f racture involving the hips or bony pelvis. Mild degenerative joint space narrowing is seen in the hip s. Sclerotic change is noted in the sacroiliac joints and pubic symphysis, with evidence of sacroilia c joint effusion on the right. Fusion hardware is noted in the lower lumbar spine with a surgical yesica in in place. The overlying soft tissues are normal as imaged. Phleboliths are seen in the pelvis. IMPRESSION: No acute bony abnormality is identified. Electronically signed by: Alexys Banks M.D. 11/03/2021 2:28 PM
--- NOTE | 2021-11-03 18:25 | Hospitalist Progress Note ---
Date of Service November 03, 2021 Assessment & Plan (1) Lumbar stenosis with neurogenic claudication: Plan: Post-op management as per Ortho surgery -pain control, bowel regimen as per Ortho PT ordered -ZAK drain management as per Ortho Dominguez removed and voiding, no BM yet'Hgb dropped to 10 and had brief hypotension this AM now resolved -check CBC, BMP again in AM (2) Ulcerative colitis: Plan: last Remicade infusion 10/04/21 In remission for many years follows with [facility] Discussed with GI Dr. Leach and he said ok to continue next dose as planned on 11/29/21 as it is far enough out from her surgery (3) History of DVT (deep vein thrombosis): Plan: h/o right peroneal vein DVT in 11/2019 after Achilles tendon repair surgery, treated with Eliquis for 6 weeks Continue SCDs for now Discussed case with Dr. Castro given she has underlying UC, is a current smoker, and had back surgery, with h/o DVT, would be high rsk for DVT He is ok with starting Lovenox low dose SQ once daily after 48 hours from time of surgery, however pt says there is no way she can give herself a shot and has no one to do it for her--> will d/w Dr. Castro about Xarelto 10mg daily (4) Current smoker: Plan: advised cessation and counseled on such and importance of improving wound healing after back surgery, but pt not ready to quit -start Nicotine patch 21mg TD daily (5) JANELLE (generalized anxiety disorder): Plan: continue home venlafaxine, trazodone, bupropion (6) Irritable bowel syndrome (IBS): Plan: continue Elavil, dicyclomine (7) Insomnia: Plan: continue trazodone (8) Chronic gastroesophageal reflux disease: Plan: continue PPI and Pepcid (9) Hyperlipidemia: Plan: continue atorvastatin (10) Depression: Plan: continue home venlafaxine, trazodone, bupropion (11) Persistent lymphocytosis: Plan: Ongoing for many years, since at least 2013, ALC 4400 on preop CBC similar to previous Peripheral smear from 2018 shows no atypia and no concern for hematologic disorder, could be secondary to UC medication as per Pathology Repeat peripheral smear in future if ALC>5000 (12) Right hip pain: Plan: DVT Proph- SCDs, will discuss Xarelto 10mg daily as above--> recommend sending home on this for 1-2 weeks after discharge Dispo-continued stay, hospitalist service will follow along Admission and Anticipated Discharge Date Admission Date: November 02, 2021 Subjective Pt having a sore lower back and some pain in right groin with bearing weight today. Reviewed hip xray with her and shows mild degenerative changes, no fracture. Otherwise no CP, SOB, no nausea or abd pain, no BM today but had Dominguez removed and is voiding. Had low BP this AM which then improved, hgb dropped 3 points Review of Systems Review of Systems: All systems reviewed & are unremarkable except as noted in HPI & below Physical Exam Constitutional: WD/WN, vitals as above Eyes: + anicteric sclerae; no conjunctival abnormality Neck: trachea midline, no thyromegaly Respiratory: normal respiratory effort, lungs clear to auscultation Cardiovascular: RRR, no murmur, no edema Chest (Breasts): Chest: normal inspection of chest Gastrointestinal (Abdomen): normal bowel sounds, soft, nontender, no hepatosplenomegaly Musculoskeletal: Extremities: extremities normal to inspection; no cyanosis and no clubbing Skin: no rashes, warm and dry Neurologic: moves all extremities and awake; no focal motor deficits Psychiatric: A+Ox3, euthymic affect Lymphatic: no lymphedema Results & Data Results & Data ([facility]) Vital Signs (Past 12 Hours) Vital Signs Temp Pulse Resp BP Pulse Ox 11/03/21 15:06 37.3 C 69 16 124/77 95 11/03/21 11:15 36.3 C L 73 14 112/73 99 11/03/21 08:42 86 106/67 11/03/21 07:19 37.0 C 84 12 89/45 L 95 Laboratory Results 11/03/21 05:37 11/03/21 05:37 Diagnostic Findings Hip/Pelvis X-Ray 11/03/21 13:03 SINGLE VIEW PELVIS; 2 VIEWS RIGHT HIP CLINICAL HISTORY: Right hip pain. FINDINGS: An AP view of the pelvis with AP and frog-leg views of the right hip are compared to study dated 10/02/2019. The skeletal structures are osteopenic. There is no radiographic evidence of acute fracture involving the hips or bony pelvis. Mild degenerative joint space narrowing is seen in the hips. Sclerotic change is noted in the sacroiliac joints and pubic symphysis, with evidence of sacroiliac joint effusion on the right. Fusion hardware is noted in the lower lumbar spine with a surgical drain in place. The overlying soft tissues are no rmal as imaged. Phleboliths are seen in the pelvis. IMPRESSION: No acute bony abnormality is identified. Electronically signed by: Alexys Banks M.D. 11/03/2021 2:28 PM PG Care Time/CCT Total # of Minutes Spent Total Time Spent with Patient: Total time spent is greater than 50% in coordination of care (as documented) at patient's floor/unit and/or counseling patient: Coding Level of Care Code 36775 Subseq Hosp Care Lvl 2 Diagnoses Lumbar stenosis with neurogenic claudication M48.062 Ulcerative colitis K51.90 History of DVT (deep vein thrombosis) Z86.718 Current smoker F17.200 JANELLE (generalized anxiety disorder) F41.1 Irritable bowel syndrome (IBS) K58.9 Insomnia G47.00 Chronic gastroesophageal reflux disease K21.9 Hyperlipidemia E78.5 Depression F32.9 Persistent lymphocytosis D72.820 Right hip pain M25.551
[2021-11-03] MEDS: AMITRIPTYLINE HCL 10 MG TAB PO SCH (20:20)
[2021-11-03] MEDS: DOCUSATE SODIUM/SENNA 50/8.6MG TAB PO SCH (20:21)
[2021-11-03] MEDS: traZODone HCL 50 MG TAB PO SCH (20:22)
[2021-11-03 21:55] VITALS: TEMP 98.4
[2021-11-04] MEDS: POLYETHYLENE (MIRALAX) 17 GM PACK PO SCH ×3 (00:43→12:28)
[2021-11-04 07:25] VITALS: BP 97/56; O2SAT 92
--- NOTE | 2021-11-04 08:29 | Discharge Summary ---
Date of Service November 04, 2021 Admission HPI Per Admitting Provider This is a 51-year-old female who presents with car persistent back and leg pain after failing course of nonoperative care she is here for surgical intervention. Principal Diagnosis Lumbar spinal stenosis with neurogenic claudication Discharge Data Allergies Allergy/AdvReac Type Severity Reaction Status Date / Time mesalamine Allergy Intermediate RASH Verified 11/02/21 06:36 latex Allergy Mild RASH Verified 11/02/21 06:36 adhesive AdvReac Intermediate SEVERE Verified 11/02/21 06:36 ITCHING, RASH, AND HIVES nitrofurantoin AdvReac Intermediate DYSPNEA Verified 11/02/21 06:36 quetiapine AdvReac Intermediate HEADACHE Verified 11/02/21 06:36 amoxicillin AdvReac Mild DIARRHEA Verified 11/02/21 06:36 aspirin AdvReac Mild ADVISED TO Verified 11/02/21 06:36 AVOID 2/2 ULCERATIVE COLITIS clavulanic acid AdvReac Mild DIARRHEA Verified 11/02/21 06:36 grass pollen-perennial rye, AdvReac Mild CONGESTION Verified 11/02/21 06:36 standar pollen extracts AdvReac Mild CONGESTION Verified 11/02/21 06:36 Consultations 11/02/21 11:23 Consult Hospitalist Routine Procedures Performed Operation Date: 11/02/21 07:45 Actual Procedures p L2-L4 Decompression, L3-L4 Fusion, Spinal Cord Monitoring, Application of Bone Morphogenetic Protein and I-Factor. (Not Applicable) - Jose Luis Castro DO s L4-S1 Hardware Removal(Not Applicable) - Jose Luis Castro DO Ordered Studies 11/02/21 07:45 FL lumbar spine 2-3V Routine Hospital Course (1) Lumbar stenosis with neurogenic claudication: Patient 100% fusion tolerated as well as second orthopedic. He appeared postoperatively when she was up and ambulating. Postop day #2 she was doing decreasing probably. Pain well controlled. Socially discharged home. Discharge orders instructions from the chart for further review. Total Time Total Time Spent Total Time Spent (In Minutes): 20 minutes Discharge Plan Discharge Items Patient Disposition: Home - Self-Care Reason For Visit: Spinal Stenosis of Lumbar Region Discharge Diagnosis: Lumbar spinal stenosis with neurogenic claudication Activity: As commented below Non-emergency contact: Primary Care Provider Call non-emergency contact if: you have any medication questions Follow-up/Referrals: Griel,Miguel C. III, [employer] [Primary Care Provider] - Diet: Regular Addtl Attending Provider Instructions: ACTIVITY RECOMMENDATIONS: SELF CARE INSTRUCTIONS AFTER THORACIC/LUMBAR FUSIONS 1. You may walk to your tolerance. It is good exercise for your legs and back. Expect some back and intermittent leg aches and pains. 2. You may perform "counter-top" level activities (make a sandwich, brad with a project, etc.). 3. No bending or lifting of more than 10 pounds or back twisting of any nature (roll like a log when turning in bed). 4. You may ride in a car for 20-30 minutes at a time. No driving until after your first visit with your doctor. 5. Frequent changes of position and restricting sitting to 30 minutes at a time will help limit the amount of back spasms and stiffness you may experience. 6. You may discontinue the use of ambulatory aids (cane, crutches, etc.) once your strength and confidence allow. 7. You may bioinformatics associate the shower and let water strike your incision when you arrive home at least once daily. Do not take a tub bath, sit in a hot tub or go into a swimming pool until after your first recheck in the office. SPECIAL CARE INSTRUCTIONS: VERY IMPORTANT TO READ AND REVIEW A. Your surgical incision has been closed with a cosmetic suture under the skin that will dissolve in about 6 weeks. In 14 days, you can use a pair of clean scissors and cut the suture that is left outside of the skin at the ends of your incision. 1. The small skin tapes can be removed 7 days after surgery if they have not fallen off by that point. 2. You may keep the wound open to air as much as possible to promote healing after post-op day number 5 unless told otherwise by your doctor. 3. If you think the wound looks like it is becoming infected (redness or worsening drainage) and/or you are experiencing fever, chill or worsening back pain and muscle spasms, contact the office so that we may evaluate you as soon as possible. B. Complications are uncommon, but please contact us if you have any signs or symptoms of: 1. wound infection (fever higher than 102.5 degrees F, redness, separation of wound, drainage, or increasing pain from the incision) 2. blood clots in legs (pain, swelling, redness and warmth in legs) 3. urinary tract infection (fever higher than 102.5 degrees F, burning upon urination or increased frequency of urination) 4. nerve problems (inability to walk on your toes or heels, numbness, loss of bowel or bladder control) 5. any other symptoms that concern you C. Please call the office at if you have any concerns or questions about your operation or recovery. D. No smoking! Smoking drastically decreases the chance of a solid fusion. E. Do not take any anti-inflammatory medications (Indocin, Advil, Motrin, Asp irin, Naprosyn, etc.) as these may inhibit the chance of a solid fusion. Tylenol is okay to take for pain. MANAGING PAIN AFTER SPINAL SURGERY 1. Narcotic medication is intended for short-term use and will be provided for surgical pain. Surgical pain usually lasts for a period of 4-6 weeks. Narcotic medication includes Percocet, Vicodin, Darvocet, Tylenol #3 or Lortab. 2. Longer-term pain is more appropriately treated with non-narcotic medication such as Tylenol ES. 3. Muscle spasm is not appropriately treated with narcotics. Muscle relaxers such as Soma, Flexeril or Skelaxin can be used along with Tylenol ES. 4. Remember that we all live with some "aches and pains". This is not unusual or uncommon after an injury or as we get older. a. Back pain is expected and may include muscle spasms for 4 to 6 weeks after surgery. The pain should gradually improve. If the pain worsens for no apparent reason, please contact the office. b. Intermittent leg pain may also be experienced and should not be concerned about unless it worsens for no apparent reason. If so, please contact the office. 5. We will provide appropriate medication within the normal guidelines of their prescribed use. We will also be very cautious and aware of potential abuse and extended duration of patients' medication needs. a. Pain medications are for your comfort and to assist with sleep and rest so that the tissue can heal. They are not provided in order to return to normal activity and should not be used through the day. To do so or worsening pain at night can result from ongoing tissue damage and development of tolerance to the prescribed medicine. 6. Please allow 2-3 days to process refills. Prescriptions will not be mailed but must be picked up at the office. FOLLOW UP VISIT: Keep your scheduled follow-up appointment. Any questions, please call the office at . Pending Studies at Discharge: No Stand-Alone Forms: [facility], Smoking Cessation Medications and DC Order Prescriptions: New tramadol 50 mg tablet 50 mg PO Q6H PRN (Reason: pain, moderate) Qty: 30 RF: 0 oxycodone 5 mg tablet 5 mg PO Q6H PRN (Reason: pain, severe) Qty: 30 RF: 0 Continued Remicade 100 mg recon soln See Rx Instructions IV .COMPLEX RF: 0 bupropion HCl 150 mg tablet sustained-release 12 hr 150 mg PO Q12H Qty: 180 RF: 3 dicyclomine 10 mg capsule 20 mg PO TID 90 Days Qty: 540 RF: 3 famotidine 20 mg tablet 20 mg PO BID Qty: 180 RF: 1 phentermine 30 mg capsule 30 mg PO QAM Qty: 30 RF: 2 lorazepam 0.5 mg tablet 0.5 mg PO TID PRN (Reason: anxiety) Qty: 20 RF: 2 acetaminophen [Tylenol] 325 mg Capsule 650 mg PO Q6H PRN (Reason: Pain) RF: 0 atorvastatin [Lipitor] 10 mg tablet 10 mg PO QAM RF: 0 venlafaxine 150 mg capsule,extended release 24hr 150 mg PO QAM RF: 0 amitriptyline 10 mg tablet 10 mg PO HS RF: 0 baclofen 10 mg tablet 10 mg PO TID RF: 0 Dexilant 60 mg capsule,biphase delayed releas 60 mg PO QAM RF: 0 trazodone 150 mg tablet 150 mg PO HS RF: 0 Discontinued diclofenac sodium [Voltaren] 1 % gel 4 g TOP QID MDD 16 GM to any affected joint Qty: 100 RF: 1 ibuprofen 200 mg Tablet 800 mg PO Q6 PRN (Reason: Pain) RF: 0 Discharge Orders: Discharge Order (Routine); Ordered 11/04/21 Ordered By: Jose Luis Castro Admission Data Admit Date/Time: 11/02/21 09:56 Attending Provider: Jose Luis Castro Admit Provider: Jose Luis Castro Primary Care Provider: Miguel Duncan III Other Providers: Jaleesa Goldman ; [facility],Home Healthcare ; [facility],Referral [facility]
[2021-11-04] MEDS: oxyCODONE HCL IR 5 MG TAB (IMMEDIATE RELEASE) PO PRN (08:47)
[2021-11-04] MEDS: VENLAFAXINE HCL XR 150 MG CAPXR PO SCH (08:48)
[2021-11-04] MEDS: NICOTINE 21 MG/24 HR TDSY TD SCH (08:48)
[2021-11-04] MEDS: dexAMETHasone 6 MG in SYRINGE 0 ML IV SCH (08:48)
[2021-11-04] MEDS: PANTOprazole 40 MG TAB PO SCH (08:48)
[2021-11-04] MEDS: FAMOTIDINE 20 MG TAB PO SCH (08:48)
[2021-11-04] MEDS: BACLOFEN 10 MG TAB PO SCH (08:49)
[2021-11-04] MEDS: buPROPion SR 150 MG TABCR PO SCH (08:49)
[2021-11-04] MEDS: DICYCLOMINE HCL 20 MG TAB PO SCH (08:49)
[2021-11-04] MEDS: ATORVASTATIN 10 MG TAB PO SCH (08:49)
[2021-11-04 12:00] VITALS: PULSE 72
--- NOTE | 2021-11-04 14:45 | Communication Note ---
Date of Service: November 04, [address] Castro regarding DVT prophylaxis and he is ok with Xarelto 10mg po daily x 2 weeks for after discharge. Rx sent and instructions typed for patient on discharge. Acute blood loss anemia-hgb stable today at 10, HD stable, ok medically for discharge
== END 2021-11-04 13:03 | disposition home or self-care (01) | DRG 454 ==
LOC: ASU 06:08 → 3E 09:56
DX: M16.11 Unilateral primary osteoarthritis, right hip; Z86.718 Personal history of other venous thrombosis and embolism; Z91.048 Other nonmedicinal substance allergy status; M43.16 Spondylolisthesis, lumbar region; E78.5 Hyperlipidemia, unspecified; K21.9 Gastro-esophageal reflux disease without esophagitis; F32.A Depression, unspecified; D62 Acute posthemorrhagic anemia; Z88.8 Allergy status to other drugs, medicaments and biological substances; F41.1 Generalized anxiety disorder; K51.90 Ulcerative colitis, unspecified, without complications; Z79.899 Other long term (current) drug therapy; D72.820 Lymphocytosis (symptomatic); Z20.822 Contact with and (suspected) exposure to COVID-19; Z47.2 Encounter for removal of internal fixation device; Z88.0 Allergy status to penicillin; Z88.1 Allergy status to other antibiotic agents; M48.062 Spinal stenosis, lumbar region with neurogenic claudication; Z91.040 Latex allergy status; M25.551 Pain in right hip; F17.210 Nicotine dependence, cigarettes, uncomplicated; Z98.1 Arthrodesis status; G47.00 Insomnia, unspecified